=== PATIENT | male | born 1955 | race Caucasian/White ===

== ENCOUNTER 2017-06-06 18:55 | Inpatient (IN) | END 2017-06-12 12:34 | disposition home or self-care (01) | DRG 329 ==

== ENCOUNTER 2018-06-12 17:55 | Inpatient (IN) | payer OTHER ==
[~2018-06-12] VITALS: Ht 190.5 cm; Wt 122.7 kg
[~2018-06-12 17:55] MED LIST: BENA5TAB33 PO; CARV3.1260 PO; CIPR500T4 PO; ISOS30TA67 PO; METR500T PO; OXYC-438 PO; PANT40TA3 PO
[2018-06-12] MEDS ORDERED: NITROGLYCERIN 2% 1 GM OINT PKT TD STA (18:07)
--- NOTE | 2018-06-12 18:09 | ERD ---
ER Documentation Chief Complaint Chief Complaint PT TRANSFERED FROM [facility] DUE TO ELEVATED TROPONIN, SOB HPI This is a 63-year-old male who was transferred from [place] [facility] because of an elev ated troponin of 13.6. Patient states that he was having difficulty breathing for the past 2 days but does not really recall having chest pain. The patient could not be admitted at [facility] because they do not have the ability to do heart cath. The electronic maintenance supervisor on-call for that hospital is a same 1 on-call here and he is aware of this patient's status. Patient states he has not had chest pain today ROS All systems reviewed and are negative except as per history of present illness. Medications Home Meds Reported Medications Atorvastatin* (Atorvastatin*) 80 Mg Tablet, 80 MG PO QHS, #30 TAB 06/12/18 Carvedilol* (Carvedilol*) 25 Mg Tablet, 25 MG PO BID, #60 TAB 06/12/18 Isosorbide Mononitrate* (Isosorbide Mononitrate*) 60 Mg Tab.er.24h, 60 MG PO DAILY, TAB 06/12/18 Benazepril Hcl* (Benazepril Hcl*) 5 Mg Tablet, 5 MG PO DAILY, #30 TAB 06/12/18 Omeprazole* (Omeprazole*) 20 Mg Capsule.dr, 20 MG PO DAILY, #30 CAP 06/12/18 Cholecalciferol* (Vitamin D3*) 1,000 Unit Tablet, 1000 UNIT PO DAILY, TAB 06/12/18 Aspirin* (Aspirin* EC) 81 Mg Tablet.dr, 81 MG PO DAILY, TAB 06/12/18 Nitroglycerin* (Nitroglycerin* SL) 0.4 Mg Tab.subl, 0.4 MG SL Q5MIN PRN for CHEST PAIN, BOTTLE 06/12/18 Discontinued Scripts Oxycodone HCl/Acetaminophen (Oxycodone-Acetaminophen 5-325) 1 Each Tablet, 1 TAB PO Q6H PRN for PAIN LEVEL 4-6, #10 TAB Prov:NINO MILLER DIGITAL MEDIA DESIGNER 06/12/17 Metronidazole* (Flagyl*) 500 Mg Tablet, 500 MG PO Q8 for 10 Days, #30 TAB Prov:NINO MILLER DIGITAL MEDIA DESIGNER 06/12/17 Ciprofloxacin Hcl* (Ciprofloxacin Hcl*) 500 Mg Tablet, 500 MG PO BID for 10 Days, #20 TAB Prov:NINO MILLER DIGITAL MEDIA DESIGNER 06/12/17 Benazepril Hcl* (Benazepril Hcl*) 5 Mg Tablet, 5 MG PO DAILY, #30 TAB Prov:NINO MILLER DIGITAL MEDIA DESIGNER 06/12/17 Carvedilol* (Carvedilol*) 3.125 Mg Tablet, 3.125 MG PO BID, #60 TAB Prov:NINO MILLER DIGITAL MEDIA DESIGNER 06/12/17 Pantoprazole* (Protonix*) 40 Mg Tablet.dr, 40 MG PO BID, #60 TAB Prov:NINO MILLER DIGITAL MEDIA DESIGNER 06/12/17 Isosorbide Mononitrate* (Isosorbide Mononitrate*) 30 Mg Tab.er.24h, 30 MG PO DAILY, #30 TAB Prov:NINO MILLER DIGITAL MEDIA DESIGNER 06/12/17 Allergies Allergies: Coded Allergies: Penicillins (Unverified Allergy, Unknown, 06/12/18) PMhx/Soc History of Surgery: No Anesthesia Reaction: No Hx Neurological Disorder: No Hx Respiratory Disorders: Yes (ASTHMA ) Hx Cardiac Disorders: Yes (HX AL; HTN, STENT X1) Hx Psychiatric Problems: No Hx Miscellaneous Medical Probl: Yes (RENAL STENT, GERD) Hx Alcohol Use: Yes Hx Substance Use: No Hx Tobacco Use: No Smoking Status: Current some day smoker FmHx Family History: No coronary disease Physical Exam Vitals Vital Signs Date Temp Pulse Resp B/P (MAP) Pulse Ox O2 O2 Flow FiO2 Time Delivery Rate 06/12/18 Nasal 2 18:08 Cannula 06/12/18 98.2 70 20 122/78 98 18:05 (93) Physical Exam Const: Well-developed, well-nourished Head: Atraumatic, normocephalic Eyes: Normal Conjunctiva, PERRLA, EOMI, normal sclera, no nystagmus ENT: Normal External Ears, Nose and Mouth, moist mucus membranes. Neck: Full range of motion. No meningismus, no lymphadenopathy. Resp: Clear to auscultation bilaterally, no wheezing, rhonchi, rales Cardio: Regular rate and rhythm, no murmurs, S1 S2 present Abd: Soft, non tender x 4, non distended. Normal bowel sounds, no guarding or rebound, no pulsitile abdominal masses or bruits Skin: No petechiae or rashes, no ecchymosis , no maculopapular rash Back: No midline or flank tenderness Ext: No cyanosis, or edema, FROM x 4, normal inspection, neurovascularly intact x 4 Neur: Awake and alert, STR 5/5 x 4, sensation intact x 4, no focal findings, cerebellum intact Psych: Normal Mood and Affect Results 24 hrs Laboratory Tests Test 06/12/18 18:28 White Blood Count Pending Red Blood Count Pending Hemoglobin Pending Hematocrit Pending Mean Corpuscular Volume Pending Mean Corpuscular Hemoglobin Pending Mean Corpuscular Hemoglobin Concent Pending Red Cell Distribution Width Pending Platelet Count Pending Mean Platelet Volume Pending Current Medications Medications Dose Sig/Alessandra Start Time Status Last (Trade) Ordered Route PRN Stop Time Admin Dose Reason Admin 1 inch ONCE STAT 06/12/18 DC 06/12/18 Nitroglycerin TD 18:07 06/12/18 18:34 18:08 (Nitroglyceri n 2% Oint) Procedures/MDM Patient admitted to the hospital here for cardiac cath. Notified electronic maintenance supervisor monkey breeder. Will receive some Nitropaste and be admitted to telemetry EKG: Rate/Rhythm: Anterior lateral Q waves, normal sinus rhythm heart rate 70 QRS, ST, QT: NORMAL [place], QRS, QT] Impression: Abnormal EKG Departure Diagnosis: Primary Impression: Non-STEMI (non-ST elevated myocardial infarction) Condition: Stable DARRIAN GONSALES DO Jun 12, 2018 18:09
[2018-06-12] MEDS ORDERED: NITR0.4T32 SL (18:19)
[2018-06-12] MEDS ORDERED: OMEP20CA16 PO (18:20)
[2018-06-12] MEDS ORDERED: ASPI-817 PO (18:20)
[2018-06-12] MEDS ORDERED: CHOL100062 PO (18:20)
[2018-06-12] MEDS ORDERED: BENA5TAB33 PO (18:21)
[2018-06-12] MEDS ORDERED: ISOS60TA PO (18:21)
[2018-06-12] MEDS ORDERED: CARV25TA79 PO (18:22)
[2018-06-12] MEDS ORDERED: ATOR-2 PO (18:22)
[2018-06-12] MEDS: FUROSEMIDE 40 MG INJ IV SCH (19:00)
--- NOTE | 2018-06-12 19:08 | HP ---
Date/Time of Note Date/Time of Note DATE: 06/12/18 TIME: 19:00 Assessment/Plan VTE Prophylaxis Pharmacological prophylaxis: heparin Lines/Catheters IV Catheter Type (from [facility]): Saline Lock Assessment/Plan Hospital Course 63 yo male with h/o CAD presents with NSTEMI and acute CHF NSTEMI: - Heparin drip, aspirin - Dr Bacon to perform LHC tomorrow Acute CHF: - Start lasix Scabies: - Permethrin cream and ivermectin TERRENCE: - Trend creatinine, UA pending PUD: - Continue PPI Dc; apparently homeless. SW assistance Result Diagram: 06/12/18182706/12/188 Results 24hrs Laboratory Tests Test 06/12/18 18:28 White Blood Count 8.5 # Red Blood Count 3.40 L Hemoglobin 11.6 L Hematocrit 34.9 L Mean Corpuscular Volume 102.6 H Mean Corpuscular Hemoglobin 34.1 H Mean Corpuscular Hemoglobin Concent 33.2 Red Cell Distribution Width 13.3 Platelet Count 229 Mean Platelet Volume 9.4 Immature Granulocytes % 0.500 H Neutrophils % 60.8 Lymphocytes % 17.9 Monocytes % 10.2 Eosinophils % 10.1 H Basophils % 0.5 Nucleated Red Blood Cells % 0.0 Immature Granulocytes # 0.040 H Neutrophils # 5.2 Lymphocytes # 1.5 Monocytes # 0.9 Eosinophils # 0.9 H Basophils # 0.0 Nucleated Red Blood Cells # 0.0 Prothrombin Time 14.9 Prothrombin Time Ratio 1.2 INR International Normalized Ratio 1.16 Activated Partial Thromboplast Time Pending Sodium Level 141 Potassium Level 3.7 Chloride Level 104 Carbon Dioxide Level 27 Anion Gap 10 Blood Urea Nitrogen 15 Creatinine 1.38 H Est Glomerular Filtrat Rate mL/min 52 L Glucose Level 118 Calcium Level 8.5 Total Bilirubin 0.9 Direct Bilirubin 0.00 Indirect Bilirubin 0.9 Aspartate Amino Transf (AST/SGOT) 119 H Alanine Aminotransferase (ALT/SGPT) 53 Alkaline Phosphatase 65 Troponin I Pending B-Type Natriuretic Peptide Pending Total Protein 7.0 Albumin 3.7 Globulin 3.30 H Albumin/Globulin Ratio 1.12 HPI/ROS Admit Date/Time Admit Date/Time Hx of Present Illness 63 yo male with h/o CAD presents as transfer from [place] for managemnet of CHF and NV Had NV in 2007. Seems to have been well since then. Over past few days has developed worsenign SOB. Seems worse at night. Denies overt chest pain but does have some cough. At [facility] found to have troponin to 13 and transferred here Currently [facility] Other major complaint is of skin itching. Given permethrin a few weeks ago but sounds lke didn't use it. Legs and back covered in excoriations ROS Constitutional: no complaints, improved Eyes: no complaints ENT: no complaints Respiratory: no complaints Cardiovascular: no complaints Gastrointestinal: no complaints Genitourinary: no complaints Musculoskeletal: no complaints Skin: no complaints Neurologic: no complaints Endocrine: no complaints Lymphatic: no complaints Psychological: no complaints, nl mood/affect Immunologic: no complaints PMH/Family/Social Past Medical History Medical History: coronary artery disease Coded Allergies: Penicillins (Unverified Allergy, Unknown, 06/12/18) Past Surgical History Past Surgical Hx: no surgical history Family History Significant Family History: no pertinent family hx Social History Alcohol Use: none Smoking Status: Current some day smoker Drug Use: none Exam/Review of Systems Vital Signs Vitals Vital Signs Date Temp Pulse Resp B/P (MAP) Pulse Ox O2 O2 Flow FiO2 Time Delivery Rate 06/12/18 67 12 122/78 100 Nasal 2.0 18:43 (93) Cannula 06/12/18 98.2 18:05 Exam Exam Alert, oriented Comfortable appearing + JVD RRR CLear lungs Obese, soft, nt Legs covered in excoriations to thighs. Back as well No pitting edema YUSRA AYALA MD Jun 12, 2018 19:08
[2018-06-12] MEDS ORDERED: NACL 0.9% 3 ML SYG IV SCH (19:30)
[2018-06-12] MEDS ORDERED: HYDROmorphONE 0.5 MG/0.5 ML SYG IV PRN (19:30)
[2018-06-12] MEDS ORDERED: IVERMECTIN 3 MG TAB PO ONE (19:30)
[2018-06-12] MEDS ORDERED: PERMETHRIN 5% 60 GM CR TOP ONE (19:30)
[2018-06-12] MEDS: HEPARIN 1000 UNITS/ML 10 ML INJ IV PRN (19:49)
[2018-06-12] MEDS: HEPARIN 25000 UNITS/250 ML 250 ML IV SCH (19:50)
[2018-06-12] MEDS ORDERED: ACETAMINOPHEN 325 MG TAB PO PRN (20:00)
[2018-06-12] MEDS ORDERED: ONDANSETRON 4 MG INJ IV PRN (20:00)
[2018-06-12 20:15] VITALS: PULSE 66
[2018-06-12 21:00] VITALS: BP 102/56; PULSE 74; RESP 18; Ht 190.5 cm; Wt 122.7 kg
[2018-06-12] MEDS ORDERED: METOPROLOL 50 MG TAB PO SCH (21:00)
[2018-06-12] MEDS: ATORVASTATIN 80 MG TAB PO SCH (21:52)
[2018-06-13] VITALS (19 sets, daily range): BP systolic 85–116; BP diastolic 43–75; PULSE 65–86; RESP 15–26
[2018-06-13] MEDS ORDERED: SOD CHLORIDE 0.9% 1,000 ML IV SCH (00:30)
[2018-06-13] MEDS: HEPARIN 25000 UNITS/250 ML 250 ML IV SCH ×2 (03:30→12:47)
[2018-06-13] MEDS: PANTOPRAZOLE (EC) 40 MG TAB PO SCH (06:15)
[2018-06-13] MEDS: FUROSEMIDE 40 MG INJ IV SCH ×3 (06:15→22:29)
--- NOTE | 2018-06-13 07:21 | CONS ---
Assessment/Plan Cardiology NYHA: IV Heart Failure Type: Acute on Chronic Heart Failure Type: Systolic Assessment/Plan Hospital Course (Demo Recall) NSTEMI: Trop 15. Dyspnea may be his anginal equivalent. Acute on chronic systolic heart failure: EF unknown but presumed depressed. Decompensated on exam but dyspnea out of proportion to his CHF Ischemic cardiomoyopathy CAD s/p SC/PCI 2007 HTN CKD: Cr 1.4 Rash: rosalino treated for possible scabies -pt agreeable and consents to cardiac cath for evaluation -heparin drip -ASA, lipitor -change to coreg 6.25mg BID -lasix 40mg IV BID Consultation Date/Type/Reason Admit Date/Time Date of Consultation: Jun 13, 2018 Type of Consult Cardiology Reason for Consultation NSTEMI Requesting Provider: YUSRA AYALA MD Date/Time of Note DATE: 06/13/18 TIME: 07:15 Hx of Present Illness 63 yo homeless male with a h/o CAD s/p SC/PCI 2007, presumed cardiomyopathy, presumed chronic systolic heart failure, CKD, HTN, who presented with dyspnea and was found to have an NSTEMI with trop 15. He was initially at [facility] but then was transferred to [facility]. He gets his care at [facility] and he actually knows exactly what medications he takes. He lives in a residential at times around there. He seems to be compliant with his meds and sees a estate conservator regularly. He notes 3 days of worsening dyspnea and edema. No chest pain. per hPI Past Medical History per hPI Home Meds Reported Medications Atorvastatin* (Atorvastatin*) 80 Mg Tablet, 80 MG PO QHS, #30 TAB 06/12/18 Carvedilol* (Carvedilol*) 25 Mg Tablet, 25 MG PO BID, #60 TAB 06/12/18 Isosorbide Mononitrate* (Isosorbide Mononitrate*) 60 Mg Tab.er.24h, 60 MG PO DA BRITTANI, TAB 06/12/18 Benazepril Hcl* (Benazepril Hcl*) 5 Mg Tablet, 5 MG PO DAILY, #30 TAB 06/12/18 Omeprazole* (Omeprazole*) 20 Mg Capsule.dr, 20 MG PO DAILY, #30 CAP 06/12/18 Cholecalciferol* (Vitamin D3*) 1,000 Unit Tablet, 1000 UNIT PO DAILY, TAB 06/12/18 Aspirin* (Aspirin* EC) 81 Mg Tablet.dr, 81 MG PO DAILY, TAB 06/12/18 Nitroglycerin* (Nitroglycerin* SL) 0.4 Mg Tab.subl, 0.4 MG SL Q5MIN PRN for CHEST PAIN, BOTTLE 06/12/18 Discontinued Scripts Oxycodone HCl/Acetaminophen (Oxycodone-Acetaminophen 5-325) 1 Each Tablet, 1 TAB PO Q6H PRN for PAIN LEVEL 4-6, #10 TAB Prov:NINO MILLER NP 06/12/17 Metronidazole* (Flagyl*) 500 Mg Tablet, 500 MG PO Q8 for 10 Days, #30 TAB Prov:NINO MILLER NP 06/12/17 Ciprofloxacin Hcl* (Ciprofloxacin Hcl*) 500 Mg Tablet, 500 MG PO BID for 10 Days, #20 TAB Prov:NINO MILLER NP 06/12/17 Benazepril Hcl* (Benazepril Hcl*) 5 Mg Tablet, 5 MG PO DAILY, #30 TAB Prov:NINO MILLER NP 06/12/17 Carvedilol* (Carvedilol*) 3.125 Mg Tablet, 3.125 MG PO BID, #60 TAB Prov:NINO MILLER NP 06/12/17 Pantoprazole* (Protonix*) 40 Mg Tablet.dr, 40 MG PO BID, #60 TAB Prov:NINO MILLER NP 06/12/17 Isosorbide Mononitrate* (Isosorbide Mononitrate*) 30 Mg Tab.er.24h, 30 MG PO DAILY, #30 TAB Prov:NINO MILLER NP 06/12/17 Medications Current Medications Furosemide (Lasix) 40 mg BID DIURETICS IV Last administered on 06/13/18at 06:15; Admin Dose 40 MG; Start 06/12/18 at 19:00 Heparin Sodium (Porcine) (Heparin (1000 Units/ml)) 4,000 unit PER PROTOCOL PRN IV aPTT<47 Last administered on 06/12/18at 19:49; Admin Dose 4,000 UNIT; Start 06/12/18 at 19:30 Heparin Sodium (Porcine) 250 ml @ 10 mls/hr PER PROTOCOL IV Last administered on 06/13/18at 03:30; Admin Dose 12.5 MLS/HR; Start 06/12/18 at 19:30 Aspirin (Aspirin) 81 mg DAILY PO ; Start 06/13/18 at 09:00 IV Flush (NS 3 ml) 3 ml PER PROTOCOL IV ; Start 06/12/18 at 19:30 Hydromorphone HCl (Dilaudid) 0.5 mg Q4H PRN IV .SEVERE PAIN 7-10; Start 06/12/18 at 19:30 Pantoprazole (Protonix Tab) 40 mg DAILY@06 PO Last administered on 06/13/18at 06:15; Admin Dose 40 MG; Start 06/13/18 at 06:00 Metoprolol Tartrate (Lopressor) 50 mg BID PO Last administered on 06/12/18at 21:53; Admin Dose 50 MG; Start 06/12/18 at 21:00 Lisinopril (Zestril) 5 mg DAILY PO ; Start 06/13/18 at 09:00 Atorvastatin Calcium (Lipitor) 80 mg HS PO Last administered on 06/12/18at 21:52; Admin Dose 80 MG; Start 06/12/18 at 21:00 Ondansetron HCl (Zofran Inj) 4 mg ER BRIDGE PRN IV NAUSEA/VOMITING; Start 06/12/18 at 20:00; Stop 06/13/18 at 19:59 Acetaminophen (Tylenol Tab) 650 mg ER BRIDGE PRN PO .MILD PAIN 1-3 OR TEMP; Start 06/12/18 at 20:00; Stop 06/13/18 at 19:59 Miscellaneous Information Patients own medicat... BID@10,16 XX ; Start 06/13/18 at 10:00 Allergies: Coded Allergies: Penicillins (Unverified Allergy, Unknown, 06/12/18) Past Surgical History Past Surgical Hx: no surgical history Social History Alcohol Use: none Smoking Status: Current some day smoker Drug Use: none Exam/Review of Systems Vital Signs Vitals Vital Signs Date Temp Pulse Resp B/P (MAP) Pulse Ox O2 O2 Flow FiO2 Time Delivery Rate 06/13/18 98.0 76 18 104/57 98 04:00 (73) 06/13/18 Nasal 00:00 Cannula 06/12/18 2.0 21:00 Intake and Output 06/12/18 06/12/18 06/13/18 1515:00 23:00 07:00 IntakeIntake Total 1195 ml OutputOutput Total 1000 ml BalanceBalance 195 ml Exam Constitutional: alert, oriented Psych: no complaints, nl mood/affect Neck: jvd (9cm) Respiratory: crackles/rales (bases); No clear to auscultation, No wheezing Cardiovascular: regular rate and rhythm, edema (1+) Extremities: No normal pulses Neurological: nl mental status, nl speech Skin: rash or lesions Additional Comments EKG: sinus, anterolateral q waves Labs Result Diagram: 06/13/1845 06/13/18 0545 Results 24hrs Laboratory Tests Test 06/12/18 18:28 06/13/18 02:32 06/13/18 05:45 White Blood Count 8.5 # 8.4 Red Blood Count 3.40 L 3.60 L Hemoglobin 11.6 L 12.1 L Hematocrit 34.9 L 37.3 L Mean Corpuscular Volume 102.6 H 103.6 H Mean Corpuscular Hemoglobin 34.1 H 33.6 H Mean Corpuscular Hemoglobin Concent 33.2 32.4 Red Cell Distribution Width 13.3 13.2 Platelet Count 229 229 Mean Platelet Volume 9.4 9.6 Immature Granulocytes % 0.500 H 0.500 H Neutrophils % 60.8 56.8 Lymphocytes % 17.9 19.5 Monocytes % 10.2 10.6 Eosinophils % 10.1 H 12.0 H Basophils % 0.5 0.6 Nucleated Red Blood Cells % 0.0 0.0 Immature Granulocytes # 0.040 H 0.040 H Neutrophils # 5.2 4.8 Lymphocytes # 1.5 1.6 Monocytes # 0.9 0.9 Eosinophils # 0.9 H 1.0 H Basophils # 0.0 0.1 Nucleated Red Blood Cells # 0.0 0.0 Prothrombin Time 14.9 Prothrombin Time Ratio 1.2 INR International Normalized Ratio 1.16 Activated Partial Thromboplast Time 30.3 56.9 H Sodium Level 141 139 Potassium Level 3.7 4.4 Chloride Level 104 102 Carbon Dioxide Level 27 28 Anion Gap 10 9 Blood Urea Nitrogen 15 20 Creatinine 1.38 H 1.40 H Est Glomerular Filtrat Rate mL/min 52 L 51 L Glucose Level 118 123 Calcium Level 8.5 9.0 Total Bilirubin 0.9 0.7 Direct Bilirubin 0.00 0.00 Indirect Bilirubin 0.9 0.7 Aspartate Amino Transf (AST/SGOT) 119 H 115 H Alanine Aminotransferase (ALT/SGPT) 53 58 Alkaline Phosphatase 65 67 Troponin I 15.400 *H B-Type Natriuretic Peptide 4350 H Total Protein 7.0 7.1 Albumin 3.7 3.7 Globulin 3.30 H 3.40 H Albumin/Globulin Ratio 1.12 1.08 Hemoglobin A1c 6.0 H Medications Medications Current Medications Furosemide (Lasix) 40 mg BID DIURETICS IV Last administered on 06/13/18 06:15; Admin Dose 40 MG; Start 06/12/18 at 19:00 Heparin Sodium (Porcine) (Heparin (1000 Units/ml)) 4,000 unit PER PROTOCOL PRN IV aPTT<47 Last administered on 06/12/18 19:49; Admin Dose 4,000 UNIT; Start 06/12/18 at 19:30 Heparin Sodium (Porcine) 250 ml @ 10 mls/hr PER PROTOCOL IV Last administered on 06/13/18 03:30; Admin Dose 12.5 MLS/HR; Start 06/12/18 at 19:30 Aspirin (Aspirin) 81 mg DAILY PO ; Start 06/13/18 at 09:00 IV Flush (NS 3 ml) 3 ml PER PROTOCOL IV ; Start 06/12/18 at 19:30 Hydromorphone HCl (Dilaudid) 0.5 mg Q4H PRN IV .SEVERE PAIN 7-10; Start 06/12/18 at 19:30 Pantoprazole (Protonix Tab) 40 mg DAILY@06 PO Last administered on 06/13/18 06:15; Admin Dose 40 MG; Start 06/13/18 at 06:00 Metoprolol Tartrate (Lopressor) 50 mg BID PO Last administered on 06/12/18at 21:53; Admin Dose 50 MG; Start 06/12/18 at 21:00 Lisinopril (Zestril) 5 mg DAILY PO ; Start 06/13/18 at 09:00 Atorvastatin Calcium (Lipitor) 80 mg HS PO Last administered on 06/12/18at 21:52; Admin Dose 80 MG; Start 06/12/18 at 21:00 Ondansetron HCl (Zofran Inj) 4 mg ER BRIDGE PRN IV NAUSEA/VOMITING; Start 06/12/18 at 20:00; Stop 4/8/19 at 19:59 Acetaminophen (Tylenol Tab) 650 mg ER BRIDGE PRN PO .MILD PAIN 1-3 OR TEMP; Start 06/12/18 at 20:00; Stop 06/13/18 at 19:59 Miscellaneous Information Patients own medicat... BID@10,16 XX ; Start 06/13/18 at 10:00 JOJO NUNEZ Jun 13, 2018 07:21
[2018-06-13] MEDS ORDERED: FENTAnyl 50 MCG/ML VIAL ONE (07:38)
[2018-06-13] MEDS ORDERED: NITROGLYCERIN (IC) 100 MCG/ML INJ ONE (07:38)
[2018-06-13] MEDS ORDERED: IODIXANOL LOCM 100 ML BTL ONE ×2 (07:38→08:13)
[2018-06-13] MEDS ORDERED: HEPARIN 1000 UNITS/ML 10 ML INJ ONE (07:38)
[2018-06-13] MEDS ORDERED: MIDAZOLAM 1 MG/ML 2 ML INJ ONE (07:38)
[2018-06-13] MEDS ORDERED: VERAPAMIL 5 MG INJ ONE (07:38)
[2018-06-13] MEDS ORDERED: LIDOCAINE 1% (MDV) 20 ML INJ ONE (07:38)
[2018-06-13] MEDS ORDERED: SOD CHLORIDE 0.9% 500 ML ONE (07:39)
--- NOTE | 2018-06-13 08:49 | OPR ---
Date/Time of Note Date/Time of Note DATE: 06/13/18 TIME: 08:42 Operative Report Procedure Date: Jun 13, 2018 Preoperative Diagnosis NSTEMI Postoperative Diagnosis NSTEMI Operation/Procedure Performed see details Surgeon see signature line Canine Enforcement Officer none Anesthesia Type: moderate sedation Estimated Blood Loss: minimal Transfusion none Specimen none Grafts/Implants none Complications none Procedure Description Procedure Date:06/13/2018 Contract Post Office Clerk/surgeon:Esteban Bacon MD. Procedures Performed: 1)Left heart catheterization with selective left and right coronary angiography. Pre-operative Diagnosis:NSTEMI Post-operative Diagnosis:same Indications: 63 yo homeless male with a h/o CAD s/p [place]/PCI 2007, presumed cardiomyopathy, presumed chronic systolic heart failure, CKD, HTN, who presented with dyspnea and was found to have an NSTEMI with trop 15 Description of Procedure: After informed consent, the patient was brought to the cardiac catheterization lab. The procedure site was prepped and draped in usual manner. The patient was premedicated with versed 1 mg and fentanyl 25 mcg. 3 mL lidocaine was injected into the right wrist. Next using the posterior wall technique, the 6/5 ugandan sheath was inserted into the right radial artery. Next using the JL3.5 and JR4, selective angiography of the left and right coronary arteries were obtained. The pigtail was then advanced into the ventricle and hemodynamics obtained. Left ventricle angiography was not obtained. Next all equipment was removed and hemostasis was obtained by TR band. Findings: Anatomy/Hemodynamics: Left main:normal LAD:very tortuous take-off with ostial 30% followed by patent prox stent followed by hazy, eccentric 95% lesion which may be calcified plaque vs thrombus Diagonal:luminal irregularities Circumflex:codominant with luminal irregularities Obtuse marginal: prox 90% RCA:codominat with prox 50% and mid 100% with left-right collaterals LV angiography:not done LV-Ao: no gradient LVEDP:35 mmHg Contrast used:80 mL Estimated blood loss<10 mL. Specimen: none Grafts/implants: none Complications: none Assessment: NSTEMI: three vessel CAD including MANAGER CANCER. Likely underlying cardiomyopathy as well. CABG eval is appropriate Plan: -restart heparin drip after TR band removed -CABG eval -diuresis -medical management in the interim ESTEBAN BACON Jun 13, 2018 08:48
--- NOTE | 2018-06-13 09:32 | CONS ---
Assessment/Plan Assessment/Plan Assessment/Plan (Daily) Chest x-ray showing mild pulmonary vessel congestion. Assessment recommendations; 1. Patient admitted with acute [place] status post angiography revealing multivessel disease, patient scheduled for CABG. 2. History of hypertension. 3. Possibly mild chronic renal insufficiency. 4. Mild CHF. Continue current supportive care. Patient scheduled for CABG surgery. Will follow postop. Consultation Date/Type/Reason Admit Date/Time Date of Consultation: Jun 13, 2018 Type of Consult Pulmonary/critical care Patient is a 63-year-old male who was transferred from [facility] where he presented with shortness of breath, patient was diagnosed with acute [place] and then subsequently transferred over here where he underwent coronary angiography which revealed multivessel disease. Patient is scheduled for CABG surgery. By the time I saw him, patient is awake and alert denies any chest pain, shortness of breath, coughing, wheezing. Past medical history; 1. Patient has a history of hypertension Medications; reviewed. Allergies; penicillin. Social history; remote history of smoking. Family history; noncontributory. Occupational history; patient is homeless. Unemployed. Review of systems; denies any headache, seizures, sinus symptoms, dysphagia, chest pain, angina, wheezing, shortness of breath. Any coughing. Any abdominal pain, nausea vomiting. Any bleeding tendencies. Any edema. Orthopnea. Any GI or urinary symptoms. Complains of itching. General exam; elderly male, awake alert, currently no distress. Date/Time of Note DATE: 06/13/18 TIME: 09:29 Past Medical History Medical History: coronary artery disease Home Meds Reported Medications Atorvastatin* (Atorvastatin*) 80 Mg Tablet, 80 MG PO QHS, #30 TAB 06/12/18 Carvedilol* (Carvedilol*) 25 Mg Tablet, 25 MG PO BID, #60 TAB 06/12/18 Isosorbide Mononitrate* (Isosorbide Mononitrate*) 60 Mg Tab.er.24h, 60 MG PO DAILY, TAB 06/12/18 Benazepril Hcl* (Benazepril Hcl*) 5 Mg Tablet, 5 MG PO DAILY, #30 TAB 06/12/18 Omeprazole* (Omeprazole*) 20 Mg Capsule.dr, 20 MG PO DAILY, #30 CAP 06/12/18 Cholecalciferol* (Vitamin D3*) 1,000 Unit Tablet, 1000 UNIT PO DAILY, TAB 06/12/18 Aspirin* (Aspirin* EC) 81 Mg Tablet.dr, 81 MG PO DAILY, TAB 06/12/18 Nitroglycerin* (Nitroglycerin* SL) 0.4 Mg Tab.subl, 0.4 MG SL Q5MIN PRN for CHEST PAIN, BOTTLE 06/12/18 Discontinued Scripts Oxycodone HCl/Acetaminophen (Oxycodone-Acetaminophen 5-325) 1 Each Tablet, 1 TAB PO Q6H PRN for PAIN LEVEL 4-6, #10 TAB Prov:NINO MILLER NP 06/12/17 Metronidazole* (Flagyl*) 500 Mg Tablet, 500 MG PO Q8 for 10 Days, #30 TAB Prov:NINO MILLER NP 06/12/17 Ciprofloxacin Hcl* (Ciprofloxacin Hcl*) 500 Mg Tablet, 500 MG PO BID for 10 Days, #20 TAB Prov:NINO MILLER NP 06/12/17 Benazepril Hcl* (Benazepril Hcl*) 5 Mg Tablet, 5 MG PO DAILY, #30 TAB Prov:NINO MILLER NP 06/12/17 Carvedilol* (Carvedilol*) 3.125 Mg Tablet, 3.125 MG PO BID, #60 TAB Prov:NINO MILLER NP 06/12/17 Pantoprazole* (Protonix*) 40 Mg Tablet.dr, 40 MG PO BID, #60 TAB Prov:NINO MILLER NP 06/12/17 Isosorbide Mononitrate* (Isosorbide Mononitrate*) 30 Mg Tab.er.24h, 30 MG PO DAILY, #30 TAB Prov:NINO MILLER NP 06/12/17 Medications Current Medications Heparin Sodium (Porcine) (Heparin (1000 Units/ml)) 4,000 unit PER PROTOCOL PRN IV aPTT<47 Last administered on 06/12/18at 19:49; Admin Dose 4,000 UNIT; Start 06/12/18 at 19:30 Heparin Sodium (Porcine) 250 ml @ 10 mls/hr PER PROTOCOL IV Last administered on 06/13/18at 03:30; Admin Dose 12.5 MLS/HR; Start 06/12/18 at 19:30 Aspirin (Aspirin) 81 mg DAILY PO ; Start 06/13/18 at 09:00 IV Flush (NS 3 ml) 3 ml PER PROTOCOL IV ; Start 06/12/18 at 19:30 Hydromorphone HCl (Dilaudid) 0.5 mg Q4H PRN IV .SEVERE PAIN 7-10; Start 06/12/18 at 19:30 Pantoprazole (Protonix Tab) 40 mg DAILY@06 PO Last administered on 06/13/18at 06:15; Admin Dose 40 MG; Start 06/13/18 at 06:00 Lisinopril (Zestril) 5 mg DAILY PO ; Start 06/13/18 at 09:00 Atorvastatin Calcium (Lipitor) 80 mg HS PO Last administered on 06/12/18at 21:52; Admin Dose 80 MG; Start 06/12/18 at 21:00 Miscellaneous Information Patients own medicat... BID@10,16 XX ; Start 06/13/18 at 10:00 Carvedilol (Coreg) 6.25 mg BID PO ; Start 06/13/18 at 09:00 Furosemide (Lasix) 40 mg Q8H IV ; Start 06/13/18 at 14:00 Allergies: Coded Allergies: Penicillins (Unverified Allergy, Unknown, 06/12/18) Past Surgical History Past Surgical Hx: no surgical history Social History Alcohol Use: none Smoking Status: Current some day smoker Drug Use: none Exam/Review of Systems Exam Vitals Vital Signs Date Temp Pulse Resp B/P (MAP) Pulse Ox O2 O2 Flow FiO2 Time Delivery Rate 06/13/18 98.0 76 18 104/57 98 04:00 (73) 06/13/18 Nasal 00:00 Cannula 06/12/18 2.0 21:00 Intake and Output 06/12/18 06/12/18 06/13/18 1515:00 23:00 07:00 IntakeIntake Total 1195 ml OutputOutput Total 1000 ml BalanceBalance 195 ml Exam H EENT exam; supple neck, patient a few remaining carious teeth. No neck masses. No lymphadenopathy. Positive JVD. Chest exam; diminished but clear breath sounds. S1-S2 audible, no murmurs. Regular rhythm. Abdomen exam; soft, nontender. No organomegaly. Mildly protuberant. Bowel sounds audible. Extremity exam; hemoglobin. Skin examination; patient has multiple excoriation acosta all over. [employer] exam; no focal deficit. Results Result Diagram: 06/13/18 0545 06/13/18 0545 Results 24hrs Laboratory Tests Test 06/12/18 18:28 06/13/18 02:32 06/13/18 05:45 White Blood Count 8.5 # 8.4 Red Blood Count 3.40 L 3.60 L Hemoglobin 11.6 L 12.1 L Hematocrit 34.9 L 37.3 L Mean Corpuscular Volume 102.6 H 103.6 H Mean Corpuscular Hemoglobin 34.1 H 33.6 H Mean Corpuscular Hemoglobin Concent 33.2 32.4 Red Cell Distribution Width 13.3 13.2 Platelet Count 229 229 Mean Platelet Volume 9.4 9.6 Immature Granulocytes % 0.500 H 0.500 H Neutrophils % 60.8 56.8 Lymphocytes % 17.9 19.5 Monocytes % 10.2 10.6 Eosinophils % 10.1 H 12.0 H Basophils % 0.5 0.6 Nucleated Red Blood Cells % 0.0 0.0 Immature Granulocytes # 0.040 H 0.040 H Neutrophils # 5.2 4.8 Lymphocytes # 1.5 1.6 Monocytes # 0.9 0.9 Eosinophils # 0.9 H 1.0 H Basophils # 0.0 0.1 Nucleated Red Blood Cells # 0.0 0.0 Prothrombin Time 14.9 Prothrombin Time Ratio 1.2 INR International Normalized Ratio 1.16 Activated Partial Thromboplast Time 30.3 56.9 H Sodium Level 141 139 Potassium Level 3.7 4.4 Chloride Level 104 102 Carbon Dioxide Level 27 28 Anion Gap 10 9 Blood Urea Nitrogen 15 20 Creatinine 1.38 H 1.40 H Est Glomerular Filtrat Rate mL/min 52 L 51 L Glucose Level 118 123 Calcium Level 8.5 9.0 Total Bilirubin 0.9 0.7 Direct Bilirubin 0.00 0.00 Indirect Bilirubin 0.9 0.7 Aspartate Amino Transf (AST/SGOT) 119 H 115 H Alanine Aminotransferase (ALT/SGPT) 53 58 Alkaline Phosphatase 65 67 Troponin I 15.400 *H B-Type Natriuretic Peptide 4350 H Total Protein 7.0 7.1 Albumin 3.7 3.7 Globulin 3.30 H 3.40 H Albumin/Globulin Ratio 1.12 1.08 Hemoglobin A1c 6.0 H Medications Medication Current Medications Heparin Sodium (Porcine) (Heparin (1000 Units/ml)) 4,000 unit PER PROTOCOL PRN IV aPTT<47 Last administered on 06/12/18at 19:49; Admin Dose 4,000 UNIT; Start 06/12/18 at 19:30 Heparin Sodium (Porcine) 250 ml @ 10 mls/hr PER PROTOCOL IV Last administered on 06/13/18at 03:30; Admin Dose 12.5 MLS/HR; Start 06/12/18 at 19:30 Aspirin (Aspirin) 81 mg DAILY PO ; Start 06/13/18 at 09:00 IV Flush (NS 3 ml) 3 ml PER PROTOCOL IV ; Start 06/12/18 at 19:30 Hydromorphone HCl (Dilaudid) 0.5 mg Q4H PRN IV .SEVERE PAIN 7-10; Start 06/12/18 at 19:30 Pantoprazole (Protonix Tab) 40 mg DAILY@06 PO Last administered on 06/13/18at 06:15; Admin Dose 40 MG; Start 06/13/18 at 06:00 Lisinopril (Zestril) 5 mg DAILY PO ; Start 06/13/18 at 09:00 Atorvastatin Calcium (Lipitor) 80 mg HS PO Last administered on 06/12/18at 21:52; Admin Dose 80 MG; Start 06/12/18 at 21:00 Miscellaneous Information Patients own medicat... BID@10,16 XX ; Start 06/13/18 at 10:00 Carvedilol (Coreg) 6.25 mg BID PO ; Start 06/13/18 at 09:00 Furosemide (Lasix) 40 mg Q8H IV ; Start 06/13/18 at 14:00 YESSY THORNTON Jun 13, 2018 09:32
[2018-06-13] MEDS: ASPIRIN 81 MG TAB PO SCH (10:02)
[2018-06-13] MEDS: LISINOPRIL 5 MG TAB PO SCH (10:02)
[2018-06-13] MEDS: HEPARIN 1000 UNITS/ML 10 ML INJ IV PRN ×2 (12:42→20:31)
--- NOTE | 2018-06-13 17:44 | PN ---
Date/Time of Note Date/Time of Note DATE: 06/13/18 TIME: 17:43 Assessment/Plan VTE Prophylaxis Risk score (from Nsg)>0 risk: 2 Pharmacological prophylaxis: heparin Lines/Catheters IV Catheter Type (from Nrsg): Saline Lock Urinary Cath still in place: No Assessment/Plan Hospital Course 63 yo male with h/o CAD presents with NSTEMI and acute CHF NSTEMI: - Heparin drip, aspirin -Status post left heart cath with Dr Bacon with diffuse disease, CT surgery referral Acute CHF: - Start lasix Scabies: - Permethrin cream and ivermectin -ID consultation obtained TERRENCE: - Trend creatinine, UA pending PUD: - Continue PPI Prophylaxis: Heparin Result Diagram: 06/13/1845 06/13/1845 Results 24hrs Laboratory Tests Test 06/12/18 18:28 06/13/18 02:32 06/13/18 05:45 06/13/18 09:42 White Blood Count 8.5 # 8.4 Red Blood Count 3.40 L 3.60 L Hemoglobin 11.6 L 12.1 L Hematocrit 34.9 L 37.3 L Mean Corpuscular Volume 102.6 H 103.6 H Mean Corpuscular 34.1 H 33.6 H Hemoglobin Mean Corpuscular 33.2 32.4 Hemoglobin Concent Red Cell Distribution 13.3 13.2 Width Platelet Count 229 229 Mean Platelet Volume 9.4 9.6 Immature Granulocytes % 0.500 H 0.500 H Neutrophils % 60.8 56.8 Lymphocytes % 17.9 19.5 Monocytes % 10.2 10.6 Eosinophils % 10.1 H 12.0 H Basophils % 0.5 0.6 Nucleated Red Blood 0.0 0.0 Cells % Immature Granulocytes # 0.040 H 0.040 H Neutrophils # 5.2 4.8 Lymphocytes # 1.5 1.6 Monocytes # 0.9 0.9 Eosinophils # 0.9 H 1.0 H Basophils # 0.0 0.1 Nucleated Red Blood 0.0 0.0 Cells # Prothrombin Time 14.9 Prothrombin Time Ratio 1.2 INR International 1.16 Normalized Ratio Activated 30.3 56.9 H 35.9 H Partial Thromboplast Time Sodium Level 141 139 Potassium Level 3.7 4.4 Chloride Level 104 102 Carbon Dioxide Level 27 28 Anion Gap 10 9 Blood Urea Nitrogen 15 20 Creatinine 1.38 H 1.40 H Est Glomerular Filtrat 52 L 51 L Rate mL/min Glucose Level 118 123 Calcium Level 8.5 9.0 Total Bilirubin 0.9 0.7 Direct Bilirubin 0.00 0.00 Indirect Bilirubin 0.9 0.7 Aspartate Amino 119 H 115 H Transf (AST/SGOT) Alanine 53 58 Aminotransferase (ALT/SG PT) Alkaline Phosphatase 65 67 Troponin I 15.400 *H B-Type Natriuretic 4350 H Peptide Total Protein 7.0 7.1 Albumin 3.7 3.7 Globulin 3.30 H 3.40 H Albumin/Globulin Ratio 1.12 1.08 Hemoglobin A1c 6.0 H Subjective 24 Hr Interval Summary Constitutional: no complaints Exam/Review of Systems Exam Vitals Vital Signs Date Temp Pulse Resp B/P (MAP) Pulse Ox O2 O2 Flow FiO2 Time Delivery Rate 06/13/18 70 16:00 06/13/18 15 98/73 (81) 100 Nasal 15:00 Cannula 06/13/18 98.4 12:00 06/13/18 2.0 09:00 Intake and Output 06/12/18 06/12/18 06/13/18 1515:00 23:00 07:00 IntakeIntake Total 1195 ml OutputOutput Total 1000 ml BalanceBalance 195 ml Constitutional: alert, oriented Respiratory: clear to auscultation Cardiovascular: regular rate and rhythm Gastrointestinal: soft; No distended Musculoskeletal: nl extremities to inspection Results Results 24hrs Laboratory Tests Test 06/12/18 18:28 06/13/18 02:32 06/13/18 05:45 06/13/18 09:42 White Blood Count 8.5 # 8.4 Red Blood Count 3.40 L 3.60 L Hemoglobin 11.6 L 12.1 L Hematocrit 34.9 L 37.3 L Mean Corpuscular Volume 102.6 H 103.6 H Mean Corpuscular 34.1 H 33.6 H Hemoglobin Mean Corpuscular 33.2 32.4 Hemoglobin Concent Red Cell Distribution 13.3 13.2 Width Platelet Count 229 229 Mean Platelet Volume 9.4 9.6 Immature Granulocytes % 0.500 H 0.500 H Neutrophils % 60.8 56.8 Lymphocytes % 17.9 19.5 Monocytes % 10.2 10.6 Eosinophils % 10.1 H 12.0 H Basophils % 0.5 0.6 Nucleated Red Blood 0.0 0.0 Cells % Immature Granulocytes # 0.040 H 0.040 H Neutrophils # 5.2 4.8 Lymphocytes # 1.5 1.6 Monocytes # 0.9 0.9 Eosinophils # 0.9 H 1.0 H Basophils # 0.0 0.1 Nucleated Red Blood 0.0 0.0 Cells # Prothrombin Time 14.9 Prothrombin Time Ratio 1.2 INR International 1.16 Normalized Ratio Activated 30.3 56.9 H 35.9 H Partial Thromboplast Time Sodium Level 141 139 Potassium Level 3.7 4.4 Chloride Level 104 102 Carbon Dioxide Level 27 28 Anion Gap 10 9 Blood Urea Nitrogen 15 20 Creatinine 1.38 H 1.40 H Est Glomerular Filtrat 52 L 51 L Rate mL/min Glucose Level 118 123 Calcium Level 8.5 9.0 Total Bilirubin 0.9 0.7 Direct Bilirubin 0.00 0.00 Indirect Bilirubin 0.9 0.7 Aspartate Amino 119 H 115 H Transf (AST/SGOT) Alanine 53 58 Aminotransferase (ALT/SG PT) Alkaline Phosphatase 65 67 Troponin I 15.400 *H B-Type Natriuretic 4350 H Peptide Total Protein 7.0 7.1 Albumin 3.7 3.7 Globulin 3.30 H 3.40 H Albumin/Globulin Ratio 1.12 1.08 Hemoglobin A1c 6.0 H Medications Medication Current Medications Heparin Sodium (Porcine) (Heparin (1000 Units/ml)) 4,000 unit PER PROTOCOL PRN IV aPTT<47 Last administered on 06/13/18at 12:42; Admin Dose 4,000 UNIT; Start 06/12/18 at 19:30 Heparin Sodium (Porcine) 250 ml @ 10 mls/hr PER PROTOCOL IV Last administered on 06/13/18at 12:47; Admin Dose 12.5 MLS/HR; Start 06/12/18 at 19:30 Aspirin (Aspirin) 81 mg DAILY PO Last administered on 06/13/18at 10:02; Admin Dose 81 MG; Start 06/13/18 at 09:00 IV Flush (NS 3 ml) 3 ml PER PROTOCOL IV ; Start 06/12/18 at 19:30 Hydromorphone HCl (Dilaudid) 0.5 mg Q4H PRN IV .SEVERE PAIN 7-10; Start 06/12/18 at 19:30 Pantoprazole (Protonix Tab) 40 mg DAILY@06 PO Last administered on 06/13/18 06:15; Admin Dose 40 MG; Start 06/13/18 at 06:00 Lisinopril (Zestril) 5 mg DAILY PO Last administered on 06/13/18 10:02; Admin Dose 5 MG; Start 06/13/18 at 09:00 Atorvastatin Calcium (Lipitor) 80 mg HS PO Last administered on 06/12/18 21:52; Admin Dose 80 MG; Start 06/12/18 at 21:00 Miscellaneous Information Patients own medicat... BID@10,16 XX ; Start 06/13/18 at 10:00 Carvedilol (Coreg) 6.25 mg BID PO Last administered on 06/13/18 10:01; Admin Dose 6.25 MG; Start 06/13/18 at 09:00 Furosemide (Lasix) 40 mg Q8H IV Last administered on 06/13/18 14:21; Admin Dose 40 MG; Start 06/13/18 at 14:00 SALVADOR BERGMAN Jun 13, 2018 17:44
--- NOTE | 2018-06-13 17:51 | PN ---
Date/Time of Note Date/Time of Note DATE: 06/13/18 TIME: 17:50 Assessment/Plan Lines/Catheters IV Catheter Type (from [facility]): Saline Lock [place] in Place (from [facility]): No Assessment/Plan Assessment/Plan 63 YEAR old male who is homeless, had NSTEMI and cath shows 3V CAD and echo shows EF of 25-30%. He has lice and scabies. These need to be treated prior to any surgery. Need ID consult to clear. Exam/Review of Systems Vital Signs Vitals Vital Signs Date Temp Pulse Resp B/P (MAP) Pulse Ox O2 O2 Flow FiO2 Time Delivery Rate 06/13/18 70 16:00 06/13/18 15 98/73 (81) 100 Nasal 15:00 Cannula 06/13/18 98.4 12:00 06/13/18 2.0 09:00 Intake and Output 06/12/18 06/12/18 06/13/18 1515:00 23:00 07:00 IntakeIntake Total 1195 ml OutputOutput Total 1000 ml BalanceBalance 195 ml Results Result Diagram: 06/13/18 0545 06/13/18 0545 BRENNAN FERRELL MD Jun 13, 2018 17:51
[2018-06-13] MEDS ORDERED: PERMETHRIN 5% 60 GM CR TOP ONE (18:00)
--- NOTE | 2018-06-13 19:13 | CONS ---
DATE OF ADMISSION: 06/12/2018 DATE OF CONSULTATION: 06/13/2018 TYPE OF CONSULTATION: Infectious disease. REASON FOR CONSULTATION: Antibiotic management. HISTORY OF PRESENT ILLNESS: Gerald Singletary is a 63-year-old male who comes in with a history of cor onary artery disease and presents with non-STEMI and acute congestive heart failure. The patient was placed on heparin. Dr. Baocn was to perform LHC today. The patient has scabies and was treate d with permethrin cream and ivermectin. On admission, white count 8.5, H and H 11.6 and 34.9, platel et count 229,000. BUN and creatinine is 15/1.38, glucose of 118. The patient was transferred from [facility] with a troponin of 13.6 and difficulty breathing. Past problems also include asthma, hypertension, history of PA, stent x1, renal stent and GERD. PHYSICAL EXAMINATION: GENERAL: He is a well-developed, well-nourished male, alert, responsive, in no acute distress. VITAL SIGNS: Stable. He is afebrile. SKIN: Without generalized rash. HEENT: Within normal limits. NECK: Supple. LYMPH NODES: None palpable. CHEST: Decreased breath sounds at the bases without rhonchi. HEART: Without murmur or gallop. ABDOMEN: Soft, nontender without organosplenomegaly or masses. EXTREMITIES: Without cyanosis, clubbing or edema. RECTAL AND GENITAL: Deferred. NEUROLOGIC: No focal neurological abnormality. IMPRESSION AND PLAN: The patient was also seen by Dr. Flynn admitted with myocardial infarction. He was also seen by Dr. Bacon. Left heart catheterization was done. Postoperative diagnosis is n on-ST elevation myocardial infarction. The patient cardiomyopathy. The patient was noted to h ave lice in his hair. I probably would use permethrin for the lice in his hair as well. This should be effective in addition to combing his hair through carefully on a daily basis. I will dictate my findings to the hospitalist. Dictated By: VASU LAW MD, JD/NTS Conf#: [id number] DID#: [id number] CC: YUSRA AYALA MD;*EndCC*
[2018-06-13] MEDS: ATORVASTATIN 80 MG TAB PO SCH (20:07)
[2018-06-14] VITALS (24 sets, daily range): BP systolic 86–122; BP diastolic 45–95; PULSE 63–85; RESP 15–28
[2018-06-14] MEDS: HEPARIN 25000 UNITS/250 ML 250 ML IV SCH ×2 (04:20→21:30)
[2018-06-14] MEDS: FUROSEMIDE 40 MG INJ IV SCH ×2 (05:57→13:25)
[2018-06-14] MEDS: PANTOPRAZOLE (EC) 40 MG TAB PO SCH (06:09)
--- NOTE | 2018-06-14 07:01 | PN ---
Date/Time of Note Date/Time of Note DATE: 06/14/18 TIME: 06:59 Assessment/Plan Lines/Catheters IV Catheter Type (from [facility]): Peripheral IV De [place] in Place (from [facility]): No Assessment/Plan Assessment/Plan not an ideal candidate for surgery considering his homeless situation and infectious problems. he is high risk secondary to his severe cardiomyopathy, poor targets. await disposition Exam/Review of Systems Vital Signs Vitals Vital Signs Date Temp Pulse Resp B/P (MAP) Pulse Ox O2 O2 Flow FiO2 Time Delivery Rate 06/14/18 76 25 114/95 96 Nasal 06:00 (101) Cannula 06/14/18 98.0 04:00 06/13/18 2.0 20:00 Intake and Output 06/13/18 06/13/18 06/14/18 1515:00 23:00 07:00 IntakeIntake Total 678.0 ml 736.5 ml 234.0 ml OutputOutput Total 1100 ml 1650 ml 950 ml BalanceBalance -422.0 ml -913.5 ml -716.0 ml Results Result Diagram: 06/13/18 0545 06/13/18 0545 BRENNAN FERERLL MD Jun 14, 2018 07:01
--- NOTE | 2018-06-14 08:54 | RADRPT ---
Echocardiogram Report Patient Name: MEGAN CLARKPatient ID: [id number] : 1955 (63y 4m)Study Date: 06/13/2018 3:04:07 PM Gender: MAccession #: [id number] Tech: Avila Castro [facility] Location: 101-A Ref.Physician: YUSRA AYALA Height(Cm): BSA: Weight(Kg): Quality: AdequateAccount #: Procedures: Echocardiographic Report: Transthoracic echocardiogram with complete 2D, M-Mode, and doppler examination. Indications: Congestive Heart Failure. Measurements: 2D/M Mode Doppler Measurement Value Normal Range Measurement Value Normal Range LVIDd 2D 5.9 [ 4.2 - 5.8 ] cm AV Peak [place] 1.3 [ 100.0 - 170.0 ] cm/sec LVIDs 2D 5.1 [ 2.5 - 4.0 ] cm AV Peak PG 6.0 [ 2.0 - 9.0 ] mmHg LVPWd 2D 0.9 [ 0.6 - 1.0 ] cm LVOT Peak [place] 1.1 [ 70.0 - 110.0 ] cm/sec IVSd 2D 1.0 [ 0.6 - 1.0 ] cm LVOT Peak PG 5.0 [ 2.0 - 6.0 ] mmHg AoR Diam 2D 3.3 [ 2.6 - 3.4 ] cm MV E Peak [place] 1.1 [ 60.0 - 130.0 ] cm/sec EDV 2D 175.0 [ 62.0 - 150.0 ] ml MV A Peak [place] 0.3 [ 100.0 - 120.0 ] cm/sec ESV 2D 122.0 [ 21.0 - 61.0 ] ml MV E/A 3.3 [ 0.8 - 1.5 ] ratio EF 2D 30.3 [ 52.0 - 72.0 ] percent MV Decel Time 180 [ 104 - 258 ] msec LA Dimen 2D 4.3 [ 3.0 - 4.0 ] cm Lat E` [place] 0.1 [ 10.0 - 15.0 ] cm/sec Lateral E/E` 11.7 [ 1.0 - 2.0 ] ratio MV E/A 3.3 [ 0.8 - 1.5 ] ratio TR Peak [place] 1.9 [ 100.0 - 280.0 ] cm/sec TR Peak PG 14.0 mmHg RVSP 17.0 [ 10.0 - 36.0 ] mmHg Findings: Left Ventricle: Normal left ventricular wall thickness. Mild enlargement of left ventricle cavity. Severe left ventricular systolic dysfunction. Ejection fraction is visually estimated at 25-30 %. Tissue Doppler/Mitral Doppler indices are consistent with restrictive physiology with markedly elevated left atrial pressure (Stage III-IV diastolic dysfunction). Dyskinetic apex without obvious thrombus. Severe hypokinesis of the septum and anterior wall. Hypokinesis of the inferior wall. Right Ventricle: Normal right ventricular size. Normal right ventricular systolic function. Left Atrium: There is moderate enlargement of left atrium. Right Atrium: There is mild enlargement of right atrium. Mitral Valve: Normal appearance of the mitral valve. Mild mitral valve regurgitation. Aortic Valve: Normal appearance of the aortic valve. No significant aortic stenosis or insufficiency. Tricuspid Valve: Normal appearance of the tricuspid valve. Unable to obtain RVSP due to minimal presence of tricuspid regurgitation. There is trace tricuspid regurgitation. Pulmonic Valve: Normal pulmonic valve appearance. Pericardium: Normal pericardium with no significant pericardial effusion. Aorta: Normal aortic root. IVC: Dilated inferior vena cava with poor inspiratory collapse consistent with elevated right atrial pressures. Conclusions: Normal left ventricular wall thickness. Mild enlargement of left ventricle cavity. Severe left ventricular systolic dysfunction. Ejection fraction is visually estimated at 25-30 %. Tissue Doppler/Mitral Doppler indices are consistent with restrictive physiology with markedly elevated left atrial pressure (Stage III-IV diastolic dysfunction). Dyskinetic apex without obvious thrombus. Severe hypokinesis of the septum and anterior wall. Hypokinesis of the inferior wall. No significant valvular stenosis or regurgitation seen. Unable to obtain RVSP due to minimal presence of tricuspid regurgitation. Dilated inferior vena cava with poor inspiratory collapse consistent with elevated right atrial pressures. Electronically Signed By: Esteban Bacon 2018-06-14 08:54:04 PDT
[2018-06-14] MEDS: LISINOPRIL 5 MG TAB PO SCH (09:09)
[2018-06-14] MEDS: ASPIRIN 81 MG TAB PO SCH (09:09)
--- NOTE | 2018-06-14 09:09 | CONS ---
Assessment/Plan Assessment/Plan Assessment/Plan (Daily) Assessment recommendations; next 1. Patient admitted with acute OH status post angiographic multiple lesions, patient has been turned down by thoracic surgeon for CABG and has recommended repeat coronary angiography with possible stenting. 2. History of hypertension. 3. Mild CHF. 4. Scabies and lice infestation. 5. Worsening renal function, likely with a history of baseline renal insufficiency. Continue with supportive care. Monitor renal function. Because of worsening renal function repeat angiography would be risky however I will defer that to the fermentation operator. Consultation Date/Type/Reason Admit Date/Time Jun 12, 2018 at 19:40 Initial Consult Date 06/13/18 Type of Consult Pulmonary/critical care Patient is a 63-year-old male who was transferred from [facility] where he presented with shortness of breath, patient was diagnosed with acute OH and then subsequently transferred over here where he underwent coronary angiography which revealed multivessel disease. Patient is scheduled for CABG surgery. By the time I saw him, patient is awake and alert denies any chest pain, shortness of breath, coughing, wheezing. Past medical history; 1. Patient has a history of hypertension Medications; reviewed. Allergies; penicillin. Social history; remote history of smoking. Family history; noncontributory. Occupational history; patient is homeless. Unemployed. Review of systems; denies any headache, seizures, sinus symptoms, dysphagia, chest pain, angina, wheezing, shortness of breath. Any coughing. Any abdominal pain, nausea vomiting. Any bleeding tendencies. Any edema. Orthopnea. Any GI or urinary symptoms. Complains of itching. General exam; elderly male, awake alert, currently no distress. Requesting Provider: YUSRA AYALA MD Date/Time of Note DATE: 06/14/18 TIME: 09:07 24 HR Interval Summary Free Text/Dictation Patient's condition is stable. Has remained hemodynamically stable. Denies any shortness of breath, chest pain. General exam; elderly male, awake alert, currently no distress. Exam/Review of Systems Exam Vitals Vital Signs Date Temp Pulse Resp B/P (MAP) Pulse Ox O2 O2 Flow FiO2 Time Delivery Rate 06/14/18 69 08:00 06/14/18 25 114/95 96 Nasal 06:00 (101) Cannula 06/14/18 98.0 04:00 06/13/18 2.0 20:00 Intake and Output 06/13/18 06/13/18 06/14/18 1515:00 23:00 07:00 IntakeIntake Total 678.0 ml 736.5 ml 234.0 ml OutputOutput Total 1100 ml 1650 ml 950 ml BalanceBalance -422.0 ml -913.5 ml -716.0 ml Exam H EENT exam; supple neck, positive JVD. No lymphadenopathy. Midline trachea. No thyromegaly. Patient has a multiple carious teeth. No neck masses. Chest exam; diminished but clear breath sounds. S1-S2 audible, no murmurs. Regular rhythm. Abdomen exam; soft, protuberant. Nontender. No organomegaly. Bowel sounds audible. Extremity exam; no peripheral edema. Skin exam; multiple excoriation acosta all over. SHARE DAIRY FARMER exam; no focal deficit. Results Result Diagram: 06/14/18 0705 06/14/18 0705 Results 24hrs Laboratory Tests Test 06/13/18 09:42 06/13/18 19:09 06/14/18 01:11 06/14/18 07:05 Activated 35.9 H 32.8 98.6 *H 86.7 *H Partial Thromboplast Time White Blood Count 7.2 Red Blood Count 3.74 L Hemoglobin 12.5 L Hematocrit 38.2 L Mean Corpuscular Volume 102.1 H Mean Corpuscular 33.4 H Hemoglobin Mean Corpuscular 32.7 Hemoglobin Concent Red Cell Distribution 13.1 Width Platelet Count 241 Mean Platelet Volume 9.6 Immature Granulocytes % 0.400 Neutrophils % 53.5 Lymphocytes % 23.6 Monocytes % 9.4 Eosinophils % 12.3 H Basophils % 0.8 Nucleated Red Blood 0.0 Cells % Immature Granulocytes # 0.030 Neutrophils # 3.9 Lymphocytes # 1.7 Monocytes # 0.7 Eosinophils # 0.9 H Basophils # 0.1 Nucleated Red Blood 0.0 Cells # Sodium Level 139 Potassium Level 3.7 Chloride Level 99 Carbon Dioxide Level 30 Anion Gap 10 Blood Urea Nitrogen 24 H Creatinine 1.58 H Est Glomerular Filtrat 44 L Rate mL/min Glucose Level 119 Calcium Level 9.4 Medications Medication Current Medications Heparin Sodium (Porcine) (Heparin (1000 Units/ml)) 4,000 unit PER PROTOCOL PRN IV aPTT<47 Last administered on 06/13/18at 20:31; Admin Dose 4,000 UNIT; Start 06/12/18 at 19:30 Heparin Sodium (Porcine) 250 ml @ 10 mls/hr PER PROTOCOL IV Last administered on 06/14/18 04:20; Admin Dose 16 MLS/HR; Start 06/12/18 at 19:30 Aspirin (Aspirin) 81 mg DAILY PO Last administered on 06/13/18 10:02; Admin Dose 81 MG; Start 06/13/18 at 09:00 IV Flush (NS 3 ml) 3 ml PER PROTOCOL IV ; Start 06/12/18 at 19:30 Hydromorphone HCl (Dilaudid) 0.5 mg Q4H PRN IV .SEVERE PAIN 7-10; Start 06/12/18 at 19:30 Pantoprazole (Protonix Tab) 40 mg DAILY@06 PO Last administered on 06/14/18 06:09; Admin Dose 40 MG; Start 06/13/18 at 06:00 Lisinopril (Zestril) 5 mg DAILY PO Last administered on 06/13/18 10:02; Admin Dose 5 MG; Start 06/13/18 at 09:00 Atorvastatin Calcium (Lipitor) 80 mg HS PO Last administered on 06/13/18 20:07; Admin Dose 80 MG; Start 06/12/18 at 21:00 Miscellaneous Information Patients own medicat... BID@10,16 XX ; Start 06/13/18 at 10:00 Carvedilol (Coreg) 6.25 mg BID PO Last administered on 06/13/18 20:08; Admin Dose 6.25 MG; Start 06/13/18 at 09:00 Furosemide (Lasix) 40 mg Q8H IV Last administered on 06/13/18 22:29; Admin Dose 40 MG; Start 06/13/18 at 14:00 YESSY THORNTON Jun 14, 2018 09:09
--- NOTE | 2018-06-14 14:35 | CONS ---
Assessment/Plan Assessment/Plan Hospital Course (Demo Recall) Patient is alert looks comfortable denies pain no fevers overnight WBC 7.2 no shift no bands BUN 24 creatinine 1.58 Allergy penicillin Physical examination: Well-developed well-nourished elderly man who is in no distress head atraumatic normocephalic neck is supple chest rise symmetrical antonio ath sounds diminished bases heart S1-S2 abdomen soft bowel sounds present extremities without cyanosis skin patient has multiple scratching acosta mostly on lower extremities Assessment: 1. Head lice and scabies, status post Elimite treatment 2. Acute DC, status post Technology Advisor on admission 3. CHF 4. Homelessness Plan: Patient is stable, not a candidate for CABG per cardiothoracic surgery continue present care, follow cardiology recommendations. Repeat Elimite in a week Consultation Date/Type/Reason Admit Date/Time Jun 12, 2018 at 19:40 Initial Consult Date 06/13/18 Type of Consult id Requesting Provider: YUSRA AYALA MD Date/Time of Note DATE: 06/14/18 TIME: 14:35 Exam/Review of Systems Exam Vitals Vital Signs Date Temp Pulse Resp B/P (MAP) Pulse Ox O2 O2 Flow FiO2 Time Delivery Rate 06/14/18 79 17 122/90 97 Nasal 3.0 14:00 (101) Cannula 06/14/18 98.5 12:00 Intake and Output 06/13/18 06/13/18 06/14/18 1515:00 23:00 07:00 IntakeIntake Total 678.0 ml 736.5 ml 250.0 ml OutputOutput Total 1100 ml 1650 ml 950 ml BalanceBalance -422.0 ml -913.5 ml -700.0 ml Results Result Diagram: 06/14/18 0706/14/18 07 Results 24hrs Laboratory Tests Test 06/13/18 19:09 06/14/18 01:11 06/14/18 07:05 06/14/18 13:51 Activated 32.8 98.6 *H 86.7 *H 75.8 *H Partial Thromboplast Time White Blood Count 7.2 Red Blood Count 3.74 L Hemoglobin 12.5 L Hematocrit 38.2 L Mean Corpuscular Volume 102.1 H Mean Corpuscular 33.4 H Hemoglobin Mean Corpuscular 32.7 Hemoglobin Concent Red Cell Distribution 13.1 Width Platelet Count 241 Mean Platelet Volume 9.6 Immature Granulocytes % 0.400 Neutrophils % 53.5 Lymphocytes % 23.6 Monocytes % 9.4 Eosinophils % 12.3 H Basophils % 0.8 Nucleated Red Blood 0.0 Cells % Immature Granulocytes # 0.030 Neutrophils # 3.9 Lymphocytes # 1.7 Monocytes # 0.7 Eosinophils # 0.9 H Basophils # 0.1 Nucleated Red Blood 0.0 Cells # Sodium Level 139 Potassium Level 3.7 Chloride Level 99 Carbon Dioxide Level 30 Anion Gap 10 Blood Urea Nitrogen 24 H Creatinine 1.58 H Est Glomerular Filtrat 44 L Rate mL/min Glucose Level 119 Calcium Level 9.4 Medications Medication Current Medications Heparin Sodium (Porcine) (Heparin (1000 Units/ml)) 4,000 unit PER PROTOCOL PRN IV aPTT<47 Last administered on 06/13/18 20:31; Admin Dose 4,000 UNIT; Start 06/12/18 at 19:30 Heparin Sodium (Porcine) 250 ml @ 10 mls/hr PER PROTOCOL IV Last administered on 06/14/18 04:20; Admin Dose 16 MLS/HR; Start 06/12/18 at 19:30 Aspirin (Aspirin) 81 mg DAILY PO Last administered on 06/14/18 09:09; Admin Dose 81 MG; Start 06/13/18 at 09:00 IV Flush (NS 3 ml) 3 ml PER PROTOCOL IV ; Start 06/12/18 at 19:30 Hydromorphone HCl (Dilaudid) 0.5 mg Q4H PRN IV .SEVERE PAIN 7-10; Start 06/12/18 at 19:30 Pantoprazole (Protonix Tab) 40 mg DAILY@06 PO Last administered on 06/14/18 06:09; Admin Dose 40 MG; Start 06/13/18 at 06:00 Lisinopril (Zestril) 5 mg DAILY PO Last administered on 06/14/18 09:09; Admin Dose 5 MG; Start 06/13/18 at 09:00 Atorvastatin Calcium (Lipitor) 80 mg HS PO Last administered on 06/13/18 20:07; Admin Dose 80 MG; Start 06/12/18 at 21:00 Miscellaneous Information Patients own medicat... BID@10,16 XX ; Start 06/13/18 at 10:00 Carvedilol (Coreg) 6.25 mg BID PO Last administered on 06/14/18at 09:09; Admin Do se 6.25 MG; Start 06/13/18 at 09:00 Furosemide (Lasix) 40 mg Q8H IV Last administered on 06/14/18at 13:25; Admin Dose 40 MG; Start 06/13/18 at 14:00 KIKO NAYAK NP Jun 14, 2018 14:35
--- NOTE | 2018-06-14 14:46 | PN ---
Date/Time of Note Date/Time of Note DATE: 06/14/18 TIME: 14:44 Assessment/Plan VTE Prophylaxis Risk score (from Nsg)>0 risk: 5 Pharmacological prophylaxis: heparin Lines/Catheters IV Catheter Type (from Nrs): Peripheral IV Urinary Cath still in place: No Assessment/Plan Hospital Course 63 yo male with h/o CAD presents with NSTEMI and acute CHF NSTEMI: - Heparin drip, aspirin -Status post left heart cath with Dr Bacon with diffuse disease, CT surgery consultation appreciated, possible CABG in the next several days Acute CHF: -Continue Lasix Scabies: -Status post permethrin cream and ivermectin -ID consultation appreciated TERRENCE: - Trend creatinine, UA pending PUD: - Continue PPI Prophylaxis: Heparin Result Diagram: 06/14/1870406/14/18704 Results 24hrs Laboratory Tests Test 06/13/18 19:09 06/14/18 01:11 06/14/18 07:05 06/14/18 13:51 Activated 32.8 98.6 *H 86.7 *H 75.8 *H Partial Thromboplast Time White Blood Count 7.2 Red Blood Count 3.74 L Hemoglobin 12.5 L Hematocrit 38.2 L Mean Corpuscular Volume 102.1 H Mean Corpuscular 33.4 H Hemoglobin Mean Corpuscular 32.7 Hemoglobin Concent Red Cell Distribution 13.1 Width Platelet Count 241 Mean Platelet Volume 9.6 Immature Granulocytes % 0.400 Neutrophils % 53.5 Lymphocytes % 23.6 Monocytes % 9.4 Eosinophils % 12.3 H Basophils % 0.8 Nucleated Red Blood 0.0 Cells % Immature Granulocytes # 0.030 Neutrophils # 3.9 Lymphocytes # 1.7 Monocytes # 0.7 Eosinophils # 0.9 H Basophils # 0.1 Nucleated Red Blood 0.0 Cells # Sodium Level 139 Potassium Level 3.7 Chloride Level 99 Carbon Dioxide Level 30 Anion Gap 10 Blood Urea Nitrogen 24 H Creatinine 1.58 H Est Glomerular Filtrat 44 L Rate mL/min Glucose Level 119 Calcium Level 9.4 Subjective 24 Hr Interval Summary Constitutional: no complaints Exam/Review of Systems Exam Vitals Vital Signs Date Temp Pulse Resp B/P (MAP) Pulse Ox O2 O2 Flow FiO2 Time Delivery Rate 06/14/18 79 17 122/90 97 Nasal 3.0 14:00 (101) Cannula 06/14/18 98.5 12:00 Intake and Output 06/13/18 06/13/18 06/14/18 1515:00 23:00 07:00 IntakeIntake Total 678.0 ml 736.5 ml 250.0 ml OutputOutput Total 1100 ml 1650 ml 950 ml BalanceBalance -422.0 ml -913.5 ml -700.0 ml Constitutional: alert, oriented Respiratory: clear to auscultation Cardiovascular: regular rate and rhythm Gastrointestinal: soft; No distended Musculoskeletal: nl extremities to inspection Results Results 24hrs Laboratory Tests Test 06/13/18 19:09 06/14/18 01:11 06/14/18 07:05 06/14/18 13:51 Activated 32.8 98.6 *H 86.7 *H 75.8 *H Partial Thromboplast Time White Blood Count 7.2 Red Blood Count 3.74 L Hemoglobin 12.5 L Hematocrit 38.2 L Mean Corpuscular Volume 102.1 H Mean Corpuscular 33.4 H Hemoglobin Mean Corpuscular 32.7 Hemoglobin Concent Red Cell Distribution 13.1 Width Platelet Count 241 Mean Platelet Volume 9.6 Immature Granulocytes % 0.400 Neutrophils % 53.5 Lymphocytes % 23.6 Monocytes % 9.4 Eosinophils % 12.3 H Basophils % 0.8 Nucleated Red Blood 0.0 Cells % Immature Granulocytes # 0.030 Neutrophils # 3.9 Lymphocytes # 1.7 Monocytes # 0.7 Eosinophils # 0.9 H Basophils # 0.1 Nucleated Red Blood 0.0 Cells # Sodium Level 139 Potassium Level 3.7 Chloride Level 99 Carbon Dioxide Level 30 Anion Gap 10 Blood Urea Nitrogen 24 H Creatinine 1.58 H Est Glomerular Filtrat 44 L Rate mL/min Glucose Level 119 Calcium Level 9.4 Medications Medication Current Medications Heparin Sodium (Porcine) (Heparin (1000 Units/ml)) 4,000 unit PER PROTOCOL PRN IV aPTT<47 Last administered on 06/13/18at 20:31; Admin Dose 4,000 UNIT; Start 06/12/18 at 19:30 Heparin Sodium (Porcine) 250 ml @ 10 mls/hr PER PROTOCOL IV Last administered on 06/14/18at 04:20; Admin Dose 16 MLS/HR; Start 06/12/18 at 19:30 Aspirin (Aspirin) 81 mg DAILY PO Last administered on 06/14/18 09:09; Admin Dose 81 MG; Start 06/13/18 at 09:00 IV Flush (NS 3 ml) 3 ml PER PROTOCOL IV ; Start 06/12/18 at 19:30 Hydromorphone HCl (Dilaudid) 0.5 mg Q4H PRN IV .SEVERE PAIN 7-10; Start 06/12/18 at 19:30 Pantoprazole (Protonix Tab) 40 mg DAILY@06 PO Last administered on 06/14/18 06: 09; Admin Dose 40 MG; Start 06/13/18 at 06:00 Lisinopril (Zestril) 5 mg DAILY PO Last administered on 06/14/18 09:09; Admin Dose 5 MG; Start 06/13/18 at 09:00 Atorvastatin Calcium (Lipitor) 80 mg HS PO Last administered on 06/13/18 20:07; Admin Dose 80 MG; Start 06/12/18 at 21:00 Miscellaneous Information Patients own medicat... BID@10,16 XX ; Start 06/13/18 at 10:00 Carvedilol (Coreg) 6.25 mg BID PO Last administered on 06/14/18 09:09; Admin Dose 6.25 MG; Start 06/13/18 at 09:00 Furosemide (Lasix) 40 mg Q8H IV Last administered on 06/14/18 13:25; Admin Dose 40 MG; Start 06/13/18 at 14:00 SALVADOR BERGMAN Jun 14, 2018 14:46
--- NOTE | 2018-06-14 17:00 | CONS ---
Assessment/Plan Cardiology NYHA: IV Heart Failure Type: Acute on Chronic Heart Failure Type: Systolic Assessment/Plan Hospital Course (Demo Recall) NSTEMI: Trop 15. Cath 06/13/18 with 3 vessel disease. Seen by Dr. Aguilar and decided to be high risk for CABG. Pt agreeable to PCI. He understands the risks and benefits and has good follow up with [facility] cardiology and access to plavix. Acute on chronic systolic heart failure: EF 25-30%. LVEDP 35 on echo. Improved with diuresis. Ischemic cardiomoyopathy CAD s/p CT/PCI 2007 HTN CKD: Cr 1.4 Rash: rosalino treated for possible scabies and also lice -NPO after midnight for PCI in am -continue heparin drip. d/c at 5 am -ASA, lipitor -coreg 6.25mg BID -hold further lasix for now Consultation Date/Type/Reason Admit Date/Time Jun 12, 2018 at 19:40 Initial Consult Date 06/13/18 Type of Consult Cardiology Requesting Provider: YUSRA AYALA MD Date/Time of Note DATE: 06/14/18 TIME: 16:55 24 HR Interval Summary Free Text/Dictation No events. No SOB. No CP. Diuresing well. Seen by Dr. Aguilar and decided to be high risk for CABG. Pt agreeable to PCI. He understands the risks and benefits and has good follow up with [facility] cardiology and access to plavix. Exam/Review of Systems Vital Signs Vitals Vital Signs Date Temp Pulse Resp B/P (MAP) Pulse Ox O2 O2 Flow FiO2 Time Delivery Rate 06/14/18 98.0 85 26 106/67 95 Nasal 3.0 16:00 (80) Cannula Intake and Output 06/13/18 06/13/18 06/14/18 1515:00 23:00 07:00 IntakeIntake Total 678.0 ml 736.5 ml 250.0 ml OutputOutput Total 1100 ml 1650 ml 950 ml BalanceBalance -422.0 ml -913.5 ml -700.0 ml Exam Constitutional: alert, oriented Psych: no complaints, nl mood/affect Head: normocephalic, atraumatic Neck: jvd (8-9cm) Respiratory: crackles/rales (mild); No clear to auscultation Cardiovascular: regular rate and rhythm, edema (trace) Gastrointestinal: soft, non-tender; No distended Neurological: nl mental status, nl speech Labs Result Diagram: 06/14/1870406/14/18 07 Results 24hrs Laboratory Tests Test 06/13/18 19:09 06/14/18 01:11 06/14/18 07:05 06/14/18 13:51 Activated 32.8 98.6 *H 86.7 *H 75.8 *H Partial Thromboplast Time White Blood Count 7.2 Red Blood Count 3.74 L Hemoglobin 12.5 L Hematocrit 38.2 L Mean Corpuscular Volume 102.1 H Mean Corpuscular 33.4 H Hemoglobin Mean Corpuscular 32.7 Hemoglobin Concent Red Cell Distribution 13.1 Width Platelet Count 241 Mean Platelet Volume 9.6 Immature Granulocytes % 0.400 Neutrophils % 53.5 Lymphocytes % 23.6 Monocytes % 9.4 Eosinophils % 12.3 H Basophils % 0.8 Nucleated Red Blood 0.0 Cells % Immature Granulocytes # 0.030 Neutrophils # 3.9 Lymphocytes # 1.7 Monocytes # 0.7 Eosinophils # 0.9 H Basophils # 0.1 Nucleated Red Blood 0.0 Cells # Sodium Level 139 Potassium Level 3.7 Chloride Level 99 Carbon Dioxide Level 30 Anion Gap 10 Blood Urea Nitrogen 24 H Creatinine 1.58 H Est Glomerular Filtrat 44 L Rate mL/min Glucose Level 119 Calcium Level 9.4 Medications Medications Current Medications Heparin Sodium (Porcine) (Heparin (1000 Units/ml)) 4,000 unit PER PROTOCOL PRN IV aPTT<47 Last administered on 06/13/18at 20:31; Admin Dose 4,000 UNIT; Start 06/12/18 at 19:30 Heparin Sodium (Porcine) 250 ml @ 10 mls/hr PER PROTOCOL IV Last administered on 06/14/18at 04:20; Admin Dose 16 MLS/HR; Start 06/12/18 at 19:30 Aspirin (Aspirin) 81 mg DAILY PO Last administered on 06/14/18at 09:09; Admin Dose 81 MG; Start 06/13/18 at 09:00 IV Flush (NS 3 ml) 3 ml PER PROTOCOL IV ; Start 06/12/18 at 19:30 Hydromorphone HCl (Dilaudid) 0.5 mg Q4H PRN IV .SEVERE PAIN 7-10; Start 06/12/18 at 19:30 Pantoprazole (Protonix Tab) 40 mg DAILY@06 PO Last administered on 06/14/18at 06:09; Admin Dose 40 MG; Start 06/13/18 at 06:00 Lisinopril (Zestril) 5 mg DAILY PO Last administered on 06/14/18at 09:09; Admin Dose 5 MG; Start 06/13/18 at 09:00 Atorvastatin Calcium (Lipitor) 80 mg HS PO Last administered on 06/13/18at 20:07; Admin Dose 80 MG; Start 06/12/18 at 21:00 Miscellaneous Information Patients own medicat... BID@10,16 XX ; Start 06/13/18 at 10:00 Carvedilol (Coreg) 6.25 mg BID PO Last administered on 06/14/18at 09:09; Admin Dose 6.25 MG; Start 06/13/18 at 09:00 Furosemide (Lasix) 40 mg Q8H IV Last administered on 06/14/18at 13:25; Admin Dose 40 MG; Start 06/13/18 at 14:00 JOJO NUNEZ Jun 14, 2018 17:00
[2018-06-14] MEDS: ATORVASTATIN 80 MG TAB PO SCH (20:34)
[2018-06-15] VITALS (55 sets, daily range): BP systolic 83–127; BP diastolic 49–79; PULSE 62–111; RESP 12–31
[2018-06-15] MEDS: PANTOPRAZOLE (EC) 40 MG TAB PO SCH (05:47)
[2018-06-15] MEDS ORDERED: FENTAnyl 50 MCG/ML VIAL ONE (07:45)
[2018-06-15] MEDS ORDERED: MIDAZOLAM 1 MG/ML 2 ML INJ ONE (07:45)
[2018-06-15] MEDS ORDERED: LIDOCAINE 1% (MDV) 20 ML INJ ONE (07:45)
[2018-06-15] MEDS ORDERED: CLOPIDOGREL 300 MG TAB ONE (07:54)
[2018-06-15] MEDS ORDERED: ASPIRIN 325 MG TAB ONE (07:54)
[2018-06-15] MEDS ORDERED: BIVALIRUDIN 250MG /NS 50 ML 50 ML IVPB ONE ×2 (08:15→08:32)
[2018-06-15] MEDS ORDERED: NITROGLYCERIN (IC) 100 MCG/ML INJ ONE (08:16)
[2018-06-15] MEDS: ASPIRIN 81 MG TAB PO SCH (09:00)
[2018-06-15] MEDS: LISINOPRIL 5 MG TAB PO SCH (09:00)
[2018-06-15] MEDS ORDERED: IODIXANOL LOCM 100 ML BTL ONE (09:08)
[2018-06-15] MEDS ORDERED: FUROSEMIDE 40 MG INJ ONE (09:28)
[2018-06-15] MEDS ORDERED: EPTIFIBATIDE 30 ML ONE (09:30)
[2018-06-15] MEDS ORDERED: EPTIFIBATIDE 100 ML IV ONE (09:30)
[2018-06-15] MEDS ORDERED: HEPARIN 1000 UNITS/ML 10 ML INJ ONE (10:56)
[2018-06-15] MEDS ORDERED: morphine 2 MG INJ IV PRN (11:00)
--- NOTE | 2018-06-15 11:24 | OPR ---
Date/Time of Note Date/Time of Note DATE: 06/15/18 TIME: 10:56 Operative Report Procedure Date: Jun 15, 2018 Preoperative Diagnosis NSTEMI Postoperative Diagnosis NSTEMI Operation/Procedure Performed see details Surgeon see signature line Biodiesel Engine Specialist none Anesthesia Type: moderate sedation Estimated Blood Loss: minimal Transfusion none Specimen none Grafts/Implants none Complications none Procedure Description Procedure Date:06/15/2018 Semiconductor Engineer/surgeon: Esteban Bacon MD. Procedures Performed: 1)Complex Balloon angioplasty and stenting of the mid LAD with a Synergy 2.5 x 8 stent. 2)Complex Balloon angioplasty of the OM. Vessel was occluded prior to any wiring or manipulation. End result was an occluded vessel with post lesion dissection. No further intervention was completed. 3)Right femoral artery angiography 4)Intraaortic balloon pump placement Pre-operative Diagnosis:NSTEMI Post-operative Diagnosis:same s/p PCI as above Indications: 63 yo M with known CAD who presented with dyspnea, CHF. He was found to have an NSTEMI with trop 15. Cath 06/13 showed 3 vessel CAD. Echo showed EF of 25-30%. He was evaluated for CABG but thought to be high risk by the surgeon. After discussing with the pt, he was agreeable to PCI. Description of Procedure: After informed consent, the patient was brought to the cardiac catheterization lab. The procedure site was prepped and draped in usual manner. The patient was premedicated with versed 1 mg and fentanyl 25 mcg. 10 mL lidocaine was injected into the right groin. Next using the Seldinger technique and micropuncture ac cess, the 6 greenlandic sheath was inserted into the right femoral artery. Right femoral angiography was performed showing that the sheath was through the common femoral artery. The decision was made to proceed with PCI of the LAD first. A 6 greenlandic EBU 3.75 guide was advanced and engaged into the left coronary artery. Appropriate anticoagulation and antiplatelets were given. Due to a proximal LAD loop, wiring the vessel was initially difficult and required BMW wire with corsair support. The BMW would not cross the lesion in question though. Through the corsair, the BMW was exchanged for a PT moderate wire. Over this, the 2.0 x 8 balloon was used to dilate the lesion x 2 but the balloon burst. Next the NC 2.25 x 8 balloon was used to dilate the lesion. Subsequently, the Synergy 2.5 x 8 stent was advanced to the lesion and deployed at 11 justino. Next the stent was post dilated with the 2.5 X 6 noncompliant balloon times 2 at a maximum of 12atm. Final angiography revealed LORENA 3 flow, no edge dissection, and appropriate stent expansion. The decision was made to attempt PCI of the OM as well. The initial angiography before starting the LAD PCI showed a patent vessel with the known proximal lesion. Angiography prior to any wire entry to the Cx territory showed that the OM was occluded. The pt had started to complain of mild chest pain prior to the completion of the LAD PCI so this is likely when it occluded. The OM takeoff was 90 degress from the Cx which also had a bend at its origin. Due to this, it was very difficult to wire the OM. Multiple wires were attempted including BMW, PT 2 light support and wiggle wire. The PT was the only one that could access the vessel and with balloon support, the wire was advanced past the lesion. Due to lack of support, the wire could not be advanced distally but based on original diagnostic images, it appeared that the wire was at least past the initial lesion bend as was the balloon. The thought was to dilate the lesion to allow wire mobility and distal vessel visualization. This was attempted with a 2.0 x 8 balloon. Angiography revealed some flow now in the prox vessel but then a vessel dissection past the lesion. Attempts at finding the true lumen were not successful and the wire again would not cross. At this stage, the thought was that the pt was asymptomatic, no EKG changes were seen, electrically stable. Since the lesion was inherently difficult and further manipulation may complicate the dissection, it was decided to abort the case and place an IABP for support overnight. The right femoral sheath was exchanged for a long 8 greenlandic sheath and through this the IABP was advanced to the aortic knob. Findings: Anatomy/Hemodynamics: Left main:normal LAD:ostial 40%, tortuous loop proximally, patent stent after, mid calcified ec centric 90-99% Diagonal:luminal irregularities Circumflex:luminal irregularities Obtuse marginal 1: original image showed patent vessel with prox 90%. Subsequent image without any manipulation showed occlusion of the vessel LV angiography:not done LVEDP:30 mmHg before the case Contrast used: 320 mL Fluoroscopy time: 56.3 min Medications used: Versed 2 Fentanyl 25 Angiomax (ACT "out of range" Plavix 600mg ASA 325mg Integrilin drip Equipment used: 6 greenlandic EBU 3.75 guide BMW, PT 2 light support angioplasty wires Corsair 2 x 8 balloon Synergy 2.5 x 8 drug eluting stent 2.25 x 8, 2.5 x 6 noncompliant balloon Estimated blood loss<10 mL. Specimen: none Grafts/implants: none Complications: none Assessment: NSTEMI: 3 vessel CAD but not a surgical candidate. s/p successful PCI of LAD. Spontaneous occlusion of OM vessel during case nut unable to successfully revascularize Cardiogenic shock: s/p IABP Plan: -continue IABP overnight -integrilin x 8 hours -ASA 81mg indefinitely -plavix 75mg at least one year ESTEBAN BACON Jun 15, 2018 11:23
--- NOTE | 2018-06-15 11:53 | CONS ---
Assessment/Plan Cardiology NYHA: IV Heart Failure Type: Acute on Chronic Heart Failure Type: Systolic Assessment/Plan Hospital Course (Demo Recall) NSTEMI: Trop 15. Cath 06/13/18 with 3 vessel disease. Seen by Dr. Aguilar and decided to be high risk for CABG. Pt agreed to PCI.S/p cath 06/15 with successful PCI of LAD. Spontaneous occlusion of OM during case. Unable to revascularize due to vessel anatomy and tortuosity. Cardiogenic shock: IABP placed. On levophed for support Acute on chronic systolic heart failure: EF 25-30%. LVEDP 35 on original cath, then 30mmHg 06/15. Improved with diuresis. Ischemic cardiomoyopathy CAD s/p MT/PCI 2007 HTN CKD: Cr 1.4 Rash: rosalino treated for scabies and also lice -integrilin until 6 pm -wean leviophed to keep MAP >100 -ASA -plavix -lipitor -hold coreg 6.25mg BID until levophed weaned off -lasix 40mg IV BID Consultation Date/Type/Reason Admit Date/Time Jun 12, 2018 at 19:40 Initial Consult Date 06/13/18 Type of Consult Cardiology Requesting Provider: YUSRA AYALA MD Date/Time of Note DATE: 06/15/18 TIME: 11:49 24 HR Interval Summary Free Text/Dictation s/p cath today with PCI of LAD. Spontaneous occlusion of OM during case. Unable to revascularize due to vessel anatomy and tortuosity. No chest pain at end of case Exam/Review of Systems Vital Signs Vitals Vital Signs Date Temp Pulse Resp B/P (MAP) Pulse Ox O2 O2 Flow FiO2 Time Delivery Rate 06/15/18 69 08:00 06/15/18 14 100/73 89 Nasal 3.0 06:00 (82) Cannula 06/15/18 98.2 04:00 Intake and Output 06/14/18 06/14/18 06/15/18 1515:00 23:00 07:00 IntakeIntake Total 601.5 ml 742 ml 98 ml OutputOutput Total 300 ml 960 ml 460 ml BalanceBalance 301.5 ml -218 ml -362 ml Exam Constitutional: alert, oriented Psych: no complaints, nl mood/affect Head: normocephalic, atraumatic Neck: jvd (9cm) Respiratory: diminished breath sounds; No clear to auscultation Cardiovascular: regular rate and rhythm; No edema, No systolic murmur Gastrointestinal: soft, non-tender; No distended Musculoskeletal: nl extremities to inspection Neurological: nl mental status, nl speech Labs Result Diagram: 06/14/1870406/15/1824 Results 24hrs Laboratory Tests Test 06/14/18 13:51 06/14/18 20:37 06/15/18 02:42 06/15/18 04:58 Activated 75.8 *H 62.6 H 61.5 H Partial Thromboplast Time Sodium Level 137 Potassium Level 5.6 H Chloride Level 100 Carbon Dioxide Level 28 Anion Gap 9 Blood Urea Nitrogen 28 H Creatinine 1.49 H Est Glomerular 47 L Filtrat Rate mL/min Glucose Level 108 Calcium Level 9.2 Test 06/15/18 07:24 Potassium Level 4.7 Medications Medications Current Medications Aspirin (Aspirin) 81 mg DAILY PO Last administered on 06/14/18at 09:09; Admin Dose 81 MG; Start 06/13/18 at 09:00 IV Flush (NS 3 ml) 3 ml PER PROTOCOL IV ; Start 06/12/18 at 19:30 Hydromorphone HCl (Dilaudid) 0.5 mg Q4H PRN IV .SEVERE PAIN 7-10; Start 06/12/18 at 19:30 Pantoprazole (Protonix Tab) 40 mg DAILY@06 PO Last administered on 06/14/18at 06:09; Admin Dose 40 MG; Start 06/13/18 at 06:00 Lisinopril (Zestril) 5 mg DAILY PO Last administered on 06/14/18at 09:09; Admin Dose 5 MG; Start 06/13/18 at 09:00 Atorvastatin Calcium (Lipitor) 80 mg HS PO Last administered on 06/14/18at 20:34; Admin Dose 80 MG; Start 06/12/18 at 21:00 Miscellaneous Information Patients own medicat... BID@10,16 XX ; Start 06/13/18 at 10:00 Carvedilol (Coreg) 6.25 mg BID PO Last administered on 06/14/18at 09:09; Admin Dose 6.25 MG; Start 06/13/18 at 09:00 Morphine Sulfate (morphine) 2 mg Q2H PRN IV FOR NON CARDIAC PAIN (4-10); Start 06/15/18 at 11:00 Clopidogrel Bisulfate (plaVIX) 75 mg DAILY PO ; Start 06/16/18 at 09:00 Furosemide (Lasix) 40 mg BID DIURETICS IV ; Start 06/15/18 at 18:00 JOJO NUNEZ Jun 15, 2018 11:53
[2018-06-15] MEDS ORDERED: EPTIFIBATIDE 100 ML IV SCH (12:30)
[2018-06-15] MEDS: NORepinephrine 8MG/250 ML (PMX 250 ML IV SCH (12:33)
--- NOTE | 2018-06-15 12:57 | RADRPT ---
Vent Rate: 66 bpm RR Interval: 0 msec [place] Interval: 168 msec QRS Duration: 86 msec QT Interval: 378 msec QTC Interval: 396 msec P-R-T [place]: 56 - 0 - 75 degrees Normal sinus rhythm Inferior infarct , age undetermined Anterolateral infarct , age undetermined Abnormal ECG Electronically Signed By: Leandro Rasheed
--- NOTE | 2018-06-15 14:05 | CONS ---
Assessment/Plan Assessment/Plan Hospital Course (Demo Recall) Alert looks comfortable no fevers overnight. Chest x-ray revealed CHF. Patient is off antibiotics. Allergy: Penicillin Physical examination: Well-developed well-nourished elderly man who is in no distress head atraumatic normocephalic neck is supple chest rise symmetrical breath sounds diminished bases heart S1-S2 abdomen soft bowel sounds present extremities without cyanosis skin patient has multiple scratching acosta mostly on lower extremities Assessment: 1. Head lice and scabies, status post Elimite treatment 2. Acute [place], status post Clerk Rating on admission 3. CHF 4. Homelessness Plan: Patient is stable, continue present care, follow cardiology recommendations. Repeat Elimite in a week Consultation Date/Type/Reason Admit Date/Time Jun 12, 2018 at 19:40 Initial Consult Date 06/13/18 Type of Consult id Requesting Provider: YUSRA AYALA MD Date/Time of Note DATE: 06/15/18 TIME: 14:05 Exam/Review of Systems Exam Vitals Vital Signs Date Temp Pulse Resp B/P (MAP) Pulse Ox O2 O2 Flow FiO2 Time Delivery Rate 06/15/18 66 21 103/59 97 Nasal 2.0 13:00 (74) Cannula 06/15/18 97.6 11:45 Intake and Output 06/14/18 06/14/18 06/15/18 1515:00 23:00 07:00 IntakeIntake Total 601.5 ml 742 ml 98 ml OutputOutput Total 300 ml 960 ml 460 ml BalanceBalance 301.5 ml -218 ml -362 ml Results Result Diagram: 06/14/18 0705 06/15/18 0724 Results 24hrs Laboratory Tests Test 06/14/18 20:37 06/15/18 02:42 06/15/18 04:58 06/15/18 07:24 Activated 62.6 H 61.5 H Partial Thromboplast Time Sodium Level 137 Potassium Level 5.6 H 4.7 Chloride Level 100 Carbon Dioxide Level 28 Anion Gap 9 Blood Urea Nitrogen 28 H Creatinine 1.49 H Est Glomerular 47 L Filtrat Rate mL/min Glucose Level 108 Calcium Level 9.2 Medications Medication Current Medications Aspirin (Aspirin) 81 mg DAILY PO Last administered on 06/14/18at 09:09; Admin Dose 81 MG; Start 06/13/18 at 09:00 IV Flush (NS 3 ml) 3 ml PER PROTOCOL IV ; Start 06/12/18 at 19:30 Hydromorphone HCl (Dilaudid) 0.5 mg Q4H PRN IV .SEVERE PAIN 7-10; Start 06/12/18 at 19:30 Pantoprazole (Protonix Tab) 40 mg DAILY@06 PO Last administered on 06/14/18at 06:09; Admin Dose 40 MG; Start 06/13/18 at 06:00 Lisinopril (Zestril) 5 mg DAILY PO Last administered on 06/14/18at 09:09; Admin Dose 5 MG; Start 06/13/18 at 09:00 Atorvastatin Calcium (Lipitor) 80 mg HS PO Last administered on 06/14/18at 20:34; Admin Dose 80 MG; Start 06/12/18 at 21:00 Miscellaneous Information Patients own medicat... BID@10,16 XX ; Start 06/13/18 at 10:00 Carvedilol (Coreg) 6.25 mg BID PO Last administered on 06/14/18at 09:09; Admin Dose 6.25 MG; Start 06/13/18 at 09:00 Morphine Sulfate (morphine) 2 mg Q2H PRN IV FOR NON CARDIAC PAIN (4-10); Start 06/15/18 at 11:00 Clopidogrel Bisulfate (plaVIX) 75 mg DAILY PO ; Start 06/16/18 at 09:00 Furosemide (Lasix) 40 mg BID DIURETICS IV ; Start 06/15/18 at 18:00 Norepinephrine 250 ml @ 1.875 mls/ hr TITRATE IV Last administered on 06/15/18at 12:33; Admin Dose 9.375 MLS/HR; Start 06/15/18 at 12:30 Eptifibatide 100 ml @ 7.693 mls/ hr Q13H IV Last administered on 06/15/18at 12:36; Admin Dose 7.693 MLS/HR; Start 06/15/18 at 12:30; Stop 06/15/18 at 18:00 KIKO NAYAK NP Jun 15, 2018 14:05
--- NOTE | 2018-06-15 14:21 | PN ---
Date/Time of Note Date/Time of Note DATE: 06/15/18 TIME: 14:09 Assessment/Plan VTE Prophylaxis Risk score (from Nsg)>0 risk: 9 Pharmacological prophylaxis: heparin Lines/Catheters Urinary Cath still in place: No Assessment/Plan Hospital Course 63 yo male with h/o CAD presents with NSTEMI and acute CHF NSTEMI: -Patient did have a prior heart cath with multivessel disease but is not a candidate for CABG -Status post PCI today with stent placement in the LAD, balloon pump placed -Monitor in ICU Acute CHF: -Continue Lasix Scabies: -Status post permethrin cream and ivermectin -ID consultation appreciated TERRENCE: - Trend creatinine, UA pending PUD: - Continue PPI Prophylaxis: Heparin DC planning: Anticipate DC home in in 2-3 days Result Diagram: 06/14/1870406/15/1824 Results 24hrs Laboratory Tests Test 06/14/18 20:37 06/15/18 02:42 06/15/18 04:58 06/15/18 07:24 Activated 62.6 H 61.5 H Partial Thromboplast Time Sodium Level 137 Potassium Level 5.6 H 4.7 Chloride Level 100 Carbon Dioxide Level 28 Anion Gap 9 Blood Urea Nitrogen 28 H Creatinine 1.49 H Est Glomerular 47 L Filtrat Rate mL/min Glucose Level 108 Calcium Level 9.2 Subjective 24 Hr Interval Summary Constitutional: no complaints Exam/Review of Systems Exam Vitals Vital Signs Date Temp Pulse Resp B/P (MAP) Pulse Ox O2 O2 Flow FiO2 Time Delivery Rate 06/15/18 66 21 103/59 97 Nasal 2.0 13:00 (74) Cannula 06/15/18 97.6 11:45 Intake and Output 06/14/18 06/14/18 06/15/18 1515:00 23:00 07:00 IntakeIntake Total 601.5 ml 742 ml 98 ml OutputOutput Total 300 ml 960 ml 460 ml BalanceBalance 301.5 ml -218 ml -362 ml Constitutional: alert, oriented Respiratory: clear to auscultation Cardiovascular: regular rate and rhythm Gastrointestinal: soft; No distended Musculoskeletal: nl extremities to inspection Results Results 24hrs Laboratory Tests Test 06/14/18 20:37 06/15/18 02:42 06/15/18 04:58 06/15/18 07:24 Activated 62.6 H 61.5 H Partial Thromboplast Time Sodium Level 137 Potassium Level 5.6 H 4.7 Chloride Level 100 Carbon Dioxide Level 28 Anion Gap 9 Blood Urea Nitrogen 28 H Creatinine 1.49 H Est Glomerular 47 L Filtrat Rate mL/min Glucose Level 108 Calcium Level 9.2 Medications Medication Current Medications Aspirin (Aspirin) 81 mg DAILY PO Last administered on 06/14/18at 09:09; Admin Dose 81 MG; Start 06/13/18 at 09:00 IV Flush (NS 3 ml) 3 ml PER PROTOCOL IV ; Start 06/12/18 at 19:30 Hydromorphone HCl (Dilaudid) 0.5 mg Q4H PRN IV .SEVERE PAIN 7-10; Start 06/12/18 at 19:30 Pantoprazole (Protonix Tab) 40 mg DAILY@06 PO Last administered on 06/14/18at 06:09; Admin Dose 40 MG; Start 06/13/18 at 06:00 Lisinopril (Zestril) 5 mg DAILY PO Last administered on 06/14/18at 09:09; Admin Dose 5 MG; Start 06/13/18 at 09:00 Atorvastatin Calcium (Lipitor) 80 mg HS PO Last administered on 06/14/18at 20:34; Admin Dose 80 MG; Start 06/12/18 at 21:00 Miscellaneous Information Patients own medicat... BID@10,16 XX ; Start 06/13/18 at 10:00 Carvedilol (Coreg) 6.25 mg BID PO Last administered on 06/14/18at 09:09; Admin Dose 6.25 MG; Start 06/13/18 at 09:00 Morphine Sulfate (morphine) 2 mg Q2H PRN IV FOR NON CARDIAC PAIN (4-10); Start 06/15/18 at 11:00 Clopidogrel Bisulfate (plaVIX) 75 mg DAILY PO ; Start 06/16/18 at 09:00 Furosemide (Lasix) 40 mg BID DIURETICS IV ; Start 06/15/18 at 18:00 Norepinephrine 250 ml @ 1.875 mls/ hr TITRATE IV Last administered on 06/15/18at 12:33; Admin Dose 9.375 MLS/HR; Start 06/15/18 at 12:30 Eptifibatide 100 ml @ 7.693 mls/ hr Q13H IV Last administered on 06/15/18at 12:36; Admin Dose 7.693 MLS/HR; Start 06/15/18 at 12:30; Stop 06/15/18 at 18:00 SALVADOR BERGMAN Jun 15, 2018 14:19
[2018-06-15] MEDS: FUROSEMIDE 40 MG INJ IV SCH (17:36)
[2018-06-15] MEDS: ATORVASTATIN 80 MG TAB PO SCH (20:02)
[2018-06-16] VITALS (73 sets, daily range): BP systolic 48–134; BP diastolic 39–105; PULSE 72–93; RESP 9–25
[2018-06-16] MEDS ORDERED: DIPHENHYDRAMINE 50 MG INJ IM PRN (00:30)
[2018-06-16] MEDS ORDERED: ZOLPIDEM 5 MG TAB PO PRN (00:30)
[2018-06-16] MEDS ORDERED: DIPHENHYDRAMINE 50 MG INJ ONE (00:37)
[2018-06-16] MEDS: FUROSEMIDE 40 MG INJ IV SCH (05:27)
[2018-06-16] MEDS: PANTOPRAZOLE (EC) 40 MG TAB PO SCH (05:27)
[2018-06-16] MEDS ORDERED: DIPHENHYDRAMINE 50 MG INJ IV PRN (06:30)
[2018-06-16] MEDS: NORepinephrine 8MG/250 ML (PMX 250 ML IV SCH (07:50)
--- NOTE | 2018-06-16 08:27 | CONS ---
Assessment/Plan Assessment/Plan Assessment/Plan (Daily) Patient is currently on Levophed 4 mics per minute. Intra-aortic balloon pump is in place. Assessment recommendations; 1 patient admitted with acute WA status post initial angiographic patient subs equently was referred for CABG which was declined by the thoracic surgeon because of high risk, patient underwent repeat coronary angiography yesterday with stenting of LAD, obtuse marginal was occluded and could not be ballooned. 2. CHF, patient maintained on Levophed as well as intra-aortic balloon pump. 3. Acute renal injury with improving renal function. 4. History of hypertension. 5. Extensive infestation with lice and scabies. Continue current supportive care. Obtain follow-up chest x-ray 24 hours. Consultation Date/Type/Reason Admit Date/Time Jun 12, 2018 at 19:40 Initial Consult Date 06/13/18 Type of Consult Pulmonary/critical care Patient is a 63-year-old male who was transferred from [facility] where he presented with shortness of breath, patient was diagnosed with acute WA and then subsequently transferred over here where he underwent coronary angiography which revealed multivessel disease. Patient is scheduled for CABG surgery. By the time I saw him, patient is awake and alert denies any chest pain, shortness of breath, coughing, wheezing. Past medical history; 1. Patient has a history of hypertension Medications; reviewed. Allergies; penicillin. Social history; remote history of smoking. Family history; noncontributory. Occupational history; patient is homeless. Unemployed. Review of systems; denies any headache, seizures, sinus symptoms, dysphagia, chest pain, angina, wheezing, shortness of breath. Any coughing. Any abdominal pain, nausea vomiting. Any bleeding tendencies. Any edema. Orthopnea. Any GI or urinary symptoms. Complains of itching. General exam; elderly male, awake alert, currently no distress. Requesting Provider: YUSRA AYALA MD Date/Time of Note DATE: 06/16/18 TIME: 08:25 24 HR Interval Summary Free Text/Dictation Patient's condition is critical. Requiring pressor support as well as intra- aortic balloon pump. Denies any shortness of breath, chest pain. General exam; elderly male, awake alert, currently in no distress. Exam/Review of Systems Exam Vitals Vital Signs Date Temp Pulse Resp B/P (MAP) Pulse Ox O2 O2 Flow FiO2 Time Delivery Rate 06/16/18 Nasal 2.0 08:00 Cannula 06/16/18 80 20 115/66 95 08:00 (82) 06/16/18 27 03:47 06/16/18 98.2 03:45 Intake and Output 06/15/18 06/15/18 06/16/18 1515:00 23:00 07:00 IntakeIntake Total 1029.125 ml 758.125 ml 376.875 ml OutputOutput Total 1300 ml 1470 ml 1500 ml BalanceBalance -270.875 ml -711.875 ml -1123.125 ml Exam H EENT exam; supple neck, positive JVD. No lymphadenopathy. Midline trachea. No thyromegaly. No neck masses. Chest exam; diminished breath sounds bilaterally. S1-S2 audible, no murmurs. Regular rhythm. Abdomen exam; soft, protuberant. Nontender. Bowel sounds audible. Extremity exam; trace edema with multiple excoriation acosta. Pulses 1+. BUSINESS ADMINISTRATION PROGRAM CHAIR exam; no focal deficit. Results Result Diagram: 06/16/18 0434 06/16/18 0434 Results 24hrs Laboratory Tests Test 06/16/18 04:34 White Blood Count 8.3 Red Blood Count 3.85 L Hemoglobin 12.9 L Hematocrit 39.3 L Mean Corpuscular Volume 102.1 H Mean Corpuscular Hemoglobin 33.5 H Mean Corpuscular Hemoglobin Concent 32.8 Red Cell Distribution Width 13.0 Platelet Count 280 Mean Platelet Volume 9.5 Immature Granulocytes % 0.400 Neutrophils % 67.1 Lymphocytes % 14.4 L Monocytes % 11.2 H Eosinophils % 6.2 Basophils % 0.7 Nucleated Red Blood Cells % 0.0 Immature Granulocytes # 0.030 Neutrophils # 5.6 Lymphocytes # 1.2 Monocytes # 0.9 Eosinophils # 0.5 Basophils # 0.1 Nucleated Red Blood Cells # 0.0 Sodium Level 137 Potassium Level 3.7 Chloride Level 97 Carbon Dioxide Level 27 Anion Gap 13 Blood Urea Nitrogen 24 H Creatinine 1.47 H Est Glomerular Filtrat Rate mL/min 48 L Glucose Level 179 Calcium Level 9.6 Magnesium Level 2.1 Medications Medication Current Medications Aspirin (Aspirin) 81 mg DAILY PO Last administered on 06/14/18at 09:09; Admin Dose 81 MG; Start 06/13/18 at 09:00 IV Flush (NS 3 ml) 3 ml PER PROTOCOL IV ; Start 06/12/18 at 19:30 Hydromorphone HCl (Dilaudid) 0.5 mg Q4H PRN IV .SEVERE PAIN 7-10; Start 06/12/18 at 19:30 Pantoprazole (Protonix Tab) 40 mg DAILY@06 PO Last administered on 06/16/18 05:27; Admin Dose 40 MG; Start 06/13/18 at 06:00 Lisinopril (Zestril) 5 mg DAILY PO Last administered on 06/14/18 09:09; Admin Dose 5 MG; Start 06/13/18 at 09:00 Atorvastatin Calcium (Lipitor) 80 mg HS PO Last administered on 06/15/18at 20:02; Admin Dose 80 MG; Start 06/12/18 at 21:00 Miscellaneous Information Patients own medicat... BID@10,16 XX ; Start 06/13/18 at 10:00 Carvedilol (Coreg) 6.25 mg BID PO Last administered on 06/14/18at 09:09; Admin Dose 6.25 MG; Start 06/13/18 at 09:00 Morphine Sulfate (morphine) 2 mg Q2H PRN IV FOR NON CARDIAC PAIN (4-10) Last administered on 06/15/18at 21:20; Admin Dose 2 MG; Start 06/15/18 at 11:00 Clopidogrel Bisulfate (plaVIX) 75 mg DAILY PO ; Start 06/16/18 at 09:00 Furosemide (Lasix) 40 mg BID DIURETICS IV Last administered on 06/16/18 05:27; Admin Dose 40 MG; Start 06/15/18 at 18:00 Norepinephrine 250 ml @ 1.875 mls/ hr TITRATE IV Last administered on 06/16/18at 07:50; Admin Dose 7.5 MLS/HR; Start 06/15/18 at 12:30 Zolpidem Tartrate (Ambien) 5 mg HS PRN PO INSOMNIA; Start 06/16/18 at 00:30 Diphenhydramine HCl (Benadryl) 25 mg Q6H PRN IV FOR ITCHINESS; Start 06/16/18 at 06:30 YESSY THORNTON Jun 16, 2018 08:27
[2018-06-16] MEDS: ASPIRIN 81 MG TAB PO SCH (08:28)
[2018-06-16] MEDS: CLOPIDOGREL 75 MG TAB PO SCH (08:28)
[2018-06-16] MEDS: LISINOPRIL 5 MG TAB PO SCH ×2 (09:00→09:58)
--- NOTE | 2018-06-16 09:01 | CONS ---
Assessment/Plan Cardiology NYHA: IV Heart Failure Type: Acute on Chronic Heart Failure Type: Systolic Assessment/Plan Hospital Course (Demo Recall) NSTEMI: Trop 15. Cath 06/13/18 with 3 vessel disease. Seen by Dr. Aguilar and decided to be high risk for CABG. Pt agreed to PCI.S/p cath 06/15 with successful PCI of LAD. Spontaneous occlusion of OM during case. Unable to revascularize due to vessel anatomy and tortuosity. Doing well. Cardiogenic shock: IABP placed in labor relations representative and removed 06/16. On levophed but should be able to wean today Acute on chronic systolic heart failure: EF 25-30%. LVEDP 35 on original cath, then 30mmHg 06/15. Improved with diuresis. Ischemic cardiomoyopathy CAD s/p [place]/PCI 2007 HTN CKD: Cr 1.4 Rash: rosalino treated for scabies and also lice -wean levophed to SBP >90. Should be able to come off very soon -ASA -plavix -lipitor -restart coreg 6.25mg BID tonight if levophed is discontinued -change to lasix 40mg PO BID Consultation Date/Type/Reason Admit Date/Time Jun 12, 2018 at 19:40 Initial Consult Date 06/13/18 Type of Consult Cardiology Requesting Provider: YUSRA AYALA MD Date/Time of Note DATE: 06/16/18 TIME: 08:59 24 HR Interval Summary Free Text/Dictation No o/n events. No chest pain or SOB. No complaints Exam/Review of Systems Vital Signs Vitals Vital Signs Date Temp Pulse Resp B/P (MAP) Pulse Ox O2 O2 Flow FiO2 Time Delivery Rate 06/16/18 Nasal 2.0 08:00 Cannula 06/16/18 80 20 115/66 95 08:00 (82) 06/16/18 27 03:47 06/16/18 98.2 03:45 Intake and Output 06/15/18 06/15/18 06/16/18 1515:00 23:00 07:00 IntakeIntake Total 1029.125 ml 758.125 ml 376.875 ml OutputOutput Total 1300 ml 1470 ml 1500 ml BalanceBalance -270.875 ml -711.875 ml -1123.125 ml Exam Constitutional: alert, oriented Psych: no complaints, nl mood/affect Head: normocephalic, atraumatic Neck: No jvd Respiratory: diminished breath sounds; No clear to auscultation Cardiovascular: regular rate and rhythm; No edema Gastrointestinal: soft, non-tender; No distended Neurological: nl mental status, nl speech Labs Result Diagram: 06/16/184 06/16/18 0434 Results 24hrs Laboratory Tests Test 06/16/18 04:34 White Blood Count 8.3 Red Blood Count 3.85 L Hemoglobin 12.9 L Hematocrit 39.3 L Mean Corpuscular Volume 102.1 H Mean Corpuscular Hemoglobin 33.5 H Mean Corpuscular Hemoglobin Concent 32.8 Red Cell Distribution Width 13.0 Platelet Count 280 Mean Platelet Volume 9.5 Immature Granulocytes % 0.400 Neutrophils % 67.1 Lymphocytes % 14.4 L Monocytes % 11.2 H Eosinophils % 6.2 Basophils % 0.7 Nucleated Red Blood Cells % 0.0 Immature Granulocytes # 0.030 Neutrophils # 5.6 Lymphocytes # 1.2 Monocytes # 0.9 Eosinophils # 0.5 Basophils # 0.1 Nucleated Red Blood Cells # 0.0 Sodium Level 137 Potassium Level 3.7 Chloride Level 97 Carbon Dioxide Level 27 Anion Gap 13 Blood Urea Nitrogen 24 H Creatinine 1.47 H Est Glomerular Filtrat Rate mL/min 48 L Glucose Level 179 Calcium Level 9.6 Magnesium Level 2.1 Medications Medications Current Medications Aspirin (Aspirin) 81 mg DAILY PO Last administered on 06/16/18at 08:28; Admin Dose 81 MG; Start 06/13/18 at 09:00 IV Flush (NS 3 ml) 3 ml PER PROTOCOL IV ; Start 06/12/18 at 19:30 Hydromorphone HCl (Dilaudid) 0.5 mg Q4H PRN IV .SEVERE PAIN 7-10; Start 06/12/18 at 19:30 Pantoprazole (Protonix Tab) 40 mg DAILY@06 PO Last administered on 06/16/18at 05:27; Admin Dose 40 MG; Start 06/13/18 at 06:00 Lisinopril (Zestril) 5 mg DAILY PO Last administered on 06/14/18at 09:09; Admin Dose 5 MG; Start 06/13/18 at 09:00 Atorvastatin Calcium (Lipitor) 80 mg HS PO Last administered on 06/15/18at 20:02; Admin Dose 80 MG; Start 06/12/18 at 21:00 Miscellaneous Information Patients own medicat... BID@10,16 XX ; Start 06/13/18 at 10:00 Carvedilol (Coreg) 6.25 mg BID PO Last administered on 06/14/18 09:09; Admin Dose 6.25 MG; Start 06/13/18 at 09:00 Morphine Sulfate (morphine) 2 mg Q2H PRN IV FOR NON CARDIAC PAIN (4-10) Last administered on 06/15/18at 21:20; Admin Dose 2 MG; Start 06/15/18 at 11:00 Clopidogrel Bisulfate (plaVIX) 75 mg DAILY PO Last administered on 06/16/18at 08:28; Admin Dose 75 MG; Start 06/16/18 at 09:00 Furosemide (Lasix) 40 mg BID DIURETICS IV Last administered on 06/16/18at 05:27; Admin Dose 40 MG; Start 06/15/18 at 18:00 Norepinephrine 250 ml @ 1.875 mls/ hr TITRATE IV Last administered on 06/16/18at 07:50; Admin Dose 7.5 MLS/HR; Start 06/15/18 at 12:30 Zolpidem Tartrate (Ambien) 5 mg HS PRN PO INSOMNIA; Start 06/16/18 at 00:30 Diphenhydramine HCl (Benadryl) 25 mg Q6H PRN IV FOR ITCHINESS; Start 06/16/18 at 06:30 JOJO NUNEZ Jun 16, 2018 09:01
[2018-06-16] MEDS ORDERED: NORepinephrine 8MG/250 ML (PMX 250 ML IV SCH (09:30)
--- NOTE | 2018-06-16 12:11 | CONS ---
Assessment/Plan Assessment/Plan Hospital Course (Demo Recall) Alert feels good Allergy: Penicillin Physical examination: Well-developed well-nourished elderly man who is in no distress head atraumatic normocephalic neck is supple chest rise symmetrical b reath sounds diminished bases heart S1-S2 abdomen soft bowel sounds present extremities without cyanosis skin patient has multiple scratching acosta mostly on lower extremities Assessment: 1. Head lice and scabies, status post Elimite treatment 2. Acute NC, status post [employer] on admission 3. CHF 4. Homelessness Plan: Stable, itching is better, continue present care, follow cardiology recom mendations. Repeat Elimite in a week Consultation Date/Type/Reason Admit Date/Time Jun 12, 2018 at 19:40 Initial Consult Date 06/13/18 Type of Consult id Requesting Provider: YUSRA AYALA MD Date/Time of Note DATE: 06/16/18 TIME: 12:10 Exam/Review of Systems Exam Vitals Vital Signs Date Temp Pulse Resp B/P (MAP) Pulse Ox O2 O2 Flow FiO2 Time Delivery Rate 06/16/18 86 20 115/76 98 10:15 (89) 06/16/18 Nasal 2.0 10:00 Cannula 06/16/18 27 03:47 06/16/18 98.2 03:45 Intake and Output 06/15/18 06/15/18 06/16/18 1515:00 23:00 07:00 IntakeIntake Total 1029.125 ml 758.125 ml 376.875 ml OutputOutput Total 1300 ml 1470 ml 1500 ml BalanceBalance -270.875 ml -711.875 ml -1123.125 ml Results Result Diagram: 06/16/18 0434 06/16/18 0434 Results 24hrs Laboratory Tests Test 06/16/18 04:34 White Blood Count 8.3 Red Blood Count 3.85 L Hemoglobin 12.9 L Hematocrit 39.3 L Mean Corpuscular Volume 102.1 H Mean Corpuscular Hemoglobin 33.5 H Mean Corpuscular Hemoglobin Concent 32.8 Red Cell Distribution Width 13.0 Platelet Count 280 Mean Platelet Volume 9.5 Immature Granulocytes % 0.400 Neutrophils % 67.1 Lymphocytes % 14.4 L Monocytes % 11.2 H Eosinophils % 6.2 Basophils % 0.7 Nucleated Red Blood Cells % 0.0 Immature Granulocytes # 0.030 Neutrophils # 5.6 Lymphocytes # 1.2 Monocytes # 0.9 Eosinophils # 0.5 Basophils # 0.1 Nucleated Red Blood Cells # 0.0 Sodium Level 137 Potassium Level 3.7 Chloride Level 97 Carbon Dioxide Level 27 Anion Gap 13 Blood Urea Nitrogen 24 H Creatinine 1.47 H Est Glomerular Filtrat Rate mL/min 48 L Glucose Level 179 Calcium Level 9.6 Magnesium Level 2.1 Medications Medication Current Medications Aspirin (Aspirin) 81 mg DAILY PO Last administered on 06/16/18 08:28; Admin Do se 81 MG; Start 06/13/18 at 09:00 IV Flush (NS 3 ml) 3 ml PER PROTOCOL IV ; Start 06/12/18 at 19:30 Hydromorphone HCl (Dilaudid) 0.5 mg Q4H PRN IV .SEVERE PAIN 7-10; Start 06/12/18 at 19:30 Pantoprazole (Protonix Tab) 40 mg DAILY@06 PO Last administered on 06/16/18at 05:27; Admin Dose 40 MG; Start 06/13/18 at 06:00 Lisinopril (Zestril) 5 mg DAILY PO Last administered on 06/16/18 09:58; Admin Dose 5 MG; Start 06/13/18 at 09:00 Atorvastatin Calcium (Lipitor) 80 mg HS PO Last administered on 06/15/18at 20:02; Admin Dose 80 MG; Start 06/12/18 at 21:00 Miscellaneous Information Patients own medicat... BID@10,16 XX ; Start 06/13/18 at 10:00 Carvedilol (Coreg) 6.25 mg BID PO Last administered on 06/16/18at 09:56; Admin Dose 6.25 MG; Start 06/13/18 at 09:00 Morphine Sulfate (morphine) 2 mg Q2H PRN IV FOR NON CARDIAC PAIN (4-10) Last administered on 06/15/18 21:20; Admin Dose 2 MG; Start 06/15/18 at 11:00 Clopidogrel Bisulfate (plaVIX) 75 mg DAILY PO Last administered on 06/16/18 08:28; Admin Dose 75 MG; Start 06/16/18 at 09:00 Zolpidem Tartrate (Ambien) 5 mg HS PRN PO INSOMNIA; Start 06/16/18 at 00:30 Diphenhydramine HCl (Benadryl) 25 mg Q6H PRN IV FOR ITCHINESS; Start 06/16/18 at 06:30 Furosemide (Lasix) 40 mg BID DIURETICS PO ; Start 06/16/18 at 18:00 Norepinephrine 250 ml @ 1.875 mls/ hr TITRATE IV ; Start 06/16/18 at 09:30 KIKO NAYAK NP Jun 16, 2018 12:11
--- NOTE | 2018-06-16 14:47 | PN ---
Date/Time of Note Date/Time of Note DATE: 06/16/18 TIME: 14:44 Assessment/Plan VTE Prophylaxis Risk score (from Nsg)>0 risk: 13 Pharmacological prophylaxis: heparin Lines/Catheters Urinary Cath still in place: No Assessment/Plan Hospital Course 63 yo male with h/o CAD presents with NSTEMI and acute CHF NSTEMI: -Patient did have a prior heart cath with multivessel disease but is not a candidate for CABG -Status post PCI with stent placement in the LAD, status post balloon pump and pressors for cardiogenic shock -Monitor in ICU Cardiogenic shock after heart cath-resolved -Status post balloon pump and pressors Acute CHF: -Continue Lasix Scabies: Resolved -Status post permethrin cream and ivermectin -ID consultation appreciated TERRENCE versus CKD -Nephrology consultation obtained PUD: - Continue PPI Prophylaxis: Heparin DC planning: Anticipate DC home in 1-2 days Result Diagram: 06/16/18 0434 06/16/18 0434 Results 24hrs Laboratory Tests Test 06/16/18 04:34 White Blood Count 8.3 Red Blood Count 3.85 L Hemoglobin 12.9 L Hematocrit 39.3 L Mean Corpuscular Volume 102.1 H Mean Corpuscular Hemoglobin 33.5 H Mean Corpuscular Hemoglobin Concent 32.8 Red Cell Distribution Width 13.0 Platelet Count 280 Mean Platelet Volume 9.5 Immature Granulocytes % 0.400 Neutrophils % 67.1 Lymphocytes % 14.4 L Monocytes % 11.2 H Eosinophils % 6.2 Basophils % 0.7 Nucleated Red Blood Cells % 0.0 Immature Granulocytes # 0.030 Neutrophils # 5.6 Lymphocytes # 1.2 Monocytes # 0.9 Eosinophils # 0.5 Basophils # 0.1 Nucleated Red Blood Cells # 0.0 Sodium Level 137 Potassium Level 3.7 Chloride Level 97 Carbon Dioxide Level 27 Anion Gap 13 Blood Urea Nitrogen 24 H Creatinine 1.47 H Est Glomerular Filtrat Rate mL/min 48 L Glucose Level 179 Calcium Level 9.6 Magnesium Level 2.1 Subjective 24 Hr Interval Summary Constitutional: no complaints Exam/Review of Systems Exam Vitals Vital Signs Date Temp Pulse Resp B/P (MAP) Pulse Ox O2 O2 Flow FiO2 Time Delivery Rate 06/16/18 77 113/78 91 Room Air 14:00 (90) Nasal Cannula 06/16/18 15 12:30 06/16/18 98.0 12:00 06/16/18 2.0 11:00 06/16/18 27 03:47 Intake and Output 06/15/18 06/15/18 06/16/18 1515:00 23:00 07:00 IntakeIntake Total 1029.125 ml 758.125 ml 376.875 ml OutputOutput Total 1300 ml 1470 ml 1500 ml BalanceBalance -270.875 ml -711.875 ml -1123.125 ml Constitutional: alert, oriented Respiratory: clear to auscultation Cardiovascular: regular rate and rhythm Gastrointestinal: soft; No distended Musculoskeletal: nl extremities to inspection Results Results 24hrs Laboratory Tests Test 06/16/18 04:34 White Blood Count 8.3 Red Blood Count 3.85 L Hemoglobin 12.9 L Hematocrit 39.3 L Mean Corpuscular Volume 102.1 H Mean Corpuscular Hemoglobin 33.5 H Mean Corpuscular Hemoglobin Concent 32.8 Red Cell Distribution Width 13.0 Platelet Count 280 Mean Platelet Volume 9.5 Immature Granulocytes % 0.400 Neutrophils % 67.1 Lymphocytes % 14.4 L Monocytes % 11.2 H Eosinophils % 6.2 Basophils % 0.7 Nucleated Red Blood Cells % 0.0 Immature Granulocytes # 0.030 Neutrophils # 5.6 Lymphocytes # 1.2 Monocytes # 0.9 Eosinophils # 0.5 Basophils # 0.1 Nucleated Red Blood Cells # 0.0 Sodium Level 137 Potassium Level 3.7 Chloride Level 97 Carbon Dioxide Level 27 Anion Gap 13 Blood Urea Nitrogen 24 H Creatinine 1.47 H Est Glomerular Filtrat Rate mL/min 48 L Glucose Level 179 Calcium Level 9.6 Magnesium Level 2.1 Medications Medication Current Medications Aspirin (Aspirin) 81 mg DAILY PO Last administered on 06/16/18at 08:28; Admin Dose 81 MG; Start 06/13/18 at 09:00 IV Flush (NS 3 ml) 3 ml PER PROTOCOL IV ; Start 06/12/18 at 19:30 Hydromorphone HCl (Dilaudid) 0.5 mg Q4H PRN IV .SEVERE PAIN 7-10; Start 06/12/18 at 19:30 Pantoprazole (Protonix Tab) 40 mg DAILY@06 PO Last administered on 06/16/18at 05:27; Admin Dose 40 MG; Start 06/13/18 at 06:00 Lisinopril (Zestril) 5 mg DAILY PO Last administered on 06/16/18at 09:58; Admin Dose 5 MG; Start 06/13/18 at 09:00 Atorvastatin Calcium (Lipitor) 80 mg HS PO Last administered on 06/15/18at 20:02; Admin Dose 80 MG; Start 06/12/18 at 21:00 Miscellaneous Information Patients own medicat... BID@10,16 XX ; Start 06/13/18 at 10:00 Carvedilol (Coreg) 6.25 mg BID PO Last administered on 06/16/18at 09:56; Admin Dose 6.25 MG; Start 06/13/18 at 09:00 Morphine Sulfate (morphine) 2 mg Q2H PRN IV FOR NON CARDIAC PAIN (4-10) Last administered on 06/15/18at 21:20; Admin Dose 2 MG; Start 06/15/18 at 11:00 Clopidogrel Bisulfate (plaVIX) 75 mg DAILY PO Last administered on 06/16/18at 08:28; Admin Dose 75 MG; Start 06/16/18 at 09:00 Zolpidem Tartrate (Ambien) 5 mg HS PRN PO INSOMNIA; Start 06/16/18 at 00:30 Diphenhydramine HCl (Benadryl) 25 mg Q6H PRN IV FOR ITCHINESS; Start 06/16/18 at 06:30 Furosemide (Lasix) 40 mg BID DIURETICS PO ; Start 06/16/18 at 18:00 Norepinephrine 250 ml @ 1.875 mls/ hr TITRATE IV ; Start 06/16/18 at 09:30 SALVADOR BERGMAN Jun 16, 2018 14:47
--- NOTE | 2018-06-16 16:33 | CONS ---
DATE OF ADMISSION: 06/12/2018 DATE OF CONSULTATION: 06/16/2018 TYPE OF CONSULTATION: Nephrology. REASON FOR CONSULTATION: Acute kidney injury. PHYSICIAN REQUESTING CONSULT: Winston Wilder MD HISTORY OF PRESENT ILLNESS: This is a 63-year-old male with past medical history of coronary artery disease, history of scabies, history of peptic ulcer disease initially presented to an outside hospit al with worsening shortness of breath. The patient at the outside facility was subsequently transfer red to [facility] to undergo cardiac catheterization. The patient was found to hav e a non-STEMI. The patient's cardiac catheterization did show multiple vessel disease. The patient was evaluated for a CT surgery but was not deemed a candidate. The patient then underwent repeat car diac catheterization and had PCI to LAD and obtuse marginal vessel. Following the procedure, the pat ient was placed on a balloon pump and was in the intensive care unit. The patient's ejection fractio n was also noted to be about 25%. In terms of patient's renal history, the patient's baseline kidney functions are unknown. Upon admis fiona, the patient was noted to have a creatinine of 1.38 mg/dL. This has been fluctuating between 1. 3 to 1.6 mg/dL. The patient denies any hemoptysis, hematemesis or hematochezia. The patient denies any prior history of acute kidney injury or CKD. PAST MEDICAL HISTORY: As stated above, history of coronary artery disease, history of peptic ulcer d isease. PAST SURGICAL HISTORY: Unknown. FAMILY HISTORY: No family history of kidney disease. SOCIAL HISTORY: Positive tobacco use. ALLERGIES: PLEASE SEE LIST. MEDICATIONS: Have been reviewed. REVIEW OF SYSTEMS: A 14-point review of systems conducted. Pertinent positives stated in HPI, other aragon negative. PHYSICAL EXAMINATION: VITAL SIGNS: Blood pressure is 117/86, respiration 19, pulse 88, temperature 98.6. HEENT: Head is normocephalic. NECK: Supple. HEART: Regular rate. LUNGS: Show diminished breath sounds at the base. ABDOMEN: Soft, nontender to palpation without rebound or guarding. EXTREMITIES: Negative for clubbing, cyanosis. No edema. DERMATOLOGIC: The patient has noted excoriations on the hands and feet. NEUROLOGIC: No focal deficits. LABORATORY DATA: Show sodium 137, potassium 3.7, BUN 24, creatinine 1.47. White count 8.3, hemoglob in 12.9, platelet count is 280. DIAGNOSTIC DATA: The patient's chest x-ray from 06/14/2018 was reviewed, which shows evidence of CHF and interstitial edema. ASSESSMENT AND PLAN: This is a 63-year-old male who presents with: 1. Nonoliguric acute kidney injury with previous baseline creatinine of 0.9 mg/dL. Etiology of acut e kidney injury is possibly multifactorial secondary to hemodynamics, cardiorenal syndrome. Possibil ity of contrast-associated nephropathy is a consideration. The patient had recent cardiac catheteriz ation with over 300 mL of iodinated contrast exposure. Plan at this point is to do a full evaluation . Plan is to check UA with microanalysis. We will check urine electrolytes. We will quantify any p roteinuria, calculate a fractional excretion of urea. We will check a renal ultrasound to evaluate r enal parenchyma. We would otherwise continue current treatment plan, supportive care, renally dose a ll meds, monitor renal function closely on diuretic therapy. 2. Acute heart failure, ischemic cardiomyopathy. The patient has ejection fraction of 35%, status p ost PCI with drug-eluting stent placed in LAD. We will continue current medical management. Follow up with cardiology recommendations. 3. Anemia. Monitor hemoglobin and hematocrit levels. 4. Mineral bone disorder. Monitor calcium and phosphorus levels. 5. Cardiogenic shock. The patient is status post balloon pump. The patient has been weaned off pre ssor support. We will continue to monitor. 6. Hypertension. Continue current blood pressure regimen. 7. Scabies. The patient has been treated. Continue to monitor. 8. History of peptic ulcer disease. Continue PPI. 9. Non-ST elevation myocardial infarction. The patient is status post PCI. Continue medical manage ment. Thank you, Dr. Wilder, for this interesting consult. It will be a pleasure to follow the patient wi th you throughout the hospital course. Dictated By: SMITH BECKWITH DO NR/NTS Conf#: [id number] DID#: [id number] CC: YUSRA AYALA MD; WINSTON WILDER MD; VASU LAW MD;*EndCC*
[2018-06-16] MEDS: FUROSEMIDE 40 MG TAB PO SCH (18:08)
[2018-06-16] MEDS: ATORVASTATIN 80 MG TAB PO SCH (20:40)
[2018-06-17] VITALS (12 sets, daily range): BP systolic 98–108; BP diastolic 53–69; PULSE 72–110; RESP 18–20
[2018-06-17] MEDS: PANTOPRAZOLE (EC) 40 MG TAB PO SCH (05:26)
[2018-06-17] MEDS: FUROSEMIDE 40 MG TAB PO SCH ×2 (05:26→18:19)
[2018-06-17] MEDS: LISINOPRIL 5 MG TAB PO SCH (08:46)
[2018-06-17] MEDS: CLOPIDOGREL 75 MG TAB PO SCH (08:46)
[2018-06-17] MEDS: ASPIRIN 81 MG TAB PO SCH (08:46)
--- NOTE | 2018-06-17 09:17 | CONS ---
Assessment/Plan Cardiology NYHA: IV Heart Failure Type: Acute on Chronic Heart Failure Type: Systolic Assessment/Plan Hospital Course (Demo Recall) NSTEMI: Trop 15. Cath 06/13/18 with 3 vessel disease. Seen by Dr. Aguilar and decided to be high risk for CABG. Pt agreed to PCI.S/p cath 06/15 with successful PCI of LAD. Spontaneous occlusion of OM during case. Unable to revascularize due to vessel anatomy and tortuosity. Doing well. Cardiogenic shock: IABP placed in cardiac cath rn and removed 06/16. Off levophed and back on cardiac meds Acute on chronic systolic heart failure: EF 25-30%. LVEDP 35 on original cath, then 30mmHg 06/15. Euvolemic after diuresis Ischemic cardiomoyopathy CAD s/p NM/PCI 2007 HTN CKD: Cr 1.4. Slightly worse at 1.6 Rash: rosalino treated for scabies and also lice -doubt contrast nephropathy as only mild increase now 48 hrs post cath. Would watch one more day and if stable, can be discharged from cardiac perspective -ASA 81mg -plavix 75mg (please discharge with at least 3 months as unclear if he will have good follow up) -lipitor 80mg -coreg 6.25mg BID -lisinopril 5mg -lasix 40mg PO BID Consultation Date/Type/Reason Admit Date/Time Jun 12, 2018 at 19:40 Initial Consult Date 06/13/18 Type of Consult Cardiology Requesting Provider: YUSRA AYALA MD Date/Time of Note DATE: 06/17/18 TIME: 09:14 24 HR Interval Summary Free Text/Dictation Transferred to tele. No complaints. Slightly sore at groin site. Cr 1.6 Exam/Review of Systems Vital Signs Vitals Vital Signs Date Temp Pulse Resp B/P (MAP) Pulse Ox O2 O2 Flow FiO2 Time Delivery Rate 06/17/18 98.0 81 20 103/65 91 08:32 (78) 06/16/18 Room Air 19:45 06/16/18 2.0 18:44 06/16/18 27 03:47 Intake and Output 06/16/18 06/16/18 06/17/18 1515:00 23:00 07:00 IntakeIntake Total 547.5 ml 240 ml 550 ml OutputOutput Total 750 ml 220 ml 600 ml BalanceBalance -202.5 ml 20 ml -50 ml Exam Constitutional: alert, oriented Psych: no complaints, nl mood/affect Head: normocephalic, atraumatic Neck: supple; No jvd Respiratory: clear to auscultation, diminished breath sounds; No crackles/rales Cardiovascular: regular rate and rhythm; No edema, No systolic murmur Gastrointestinal: soft, non-tender; No distended Neurological: nl mental status, nl speech Labs Result Diagram: 06/16/18 0434 06/17/18 0613 Results 24hrs Laboratory Tests Test 06/17/18 06:13 Sodium Level 138 Potassium Level 4.2 Chloride Level 99 Carbon Dioxide Level 26 Anion Gap 13 Blood Urea Nitrogen 30 H Creatinine 1.66 H Est Glomerular Filtrat Rate mL/min 42 L Glucose Level 119 # Calcium Level 9.5 Medications Medications Current Medications Aspirin (Aspirin) 81 mg DAILY PO Last administered on 06/17/18at 08:46; Admin Dose 81 MG; Start 06/13/18 at 09:00 IV Flush (NS 3 ml) 3 ml PER PROTOCOL IV ; Start 06/12/18 at 19:30 Hydromorphone HCl (Dilaudid) 0.5 mg Q4H PRN IV .SEVERE PAIN 7-10; Start 06/12/18 at 19:30 Pantoprazole (Protonix Tab) 40 mg DAILY@06 PO Last administered on 06/17/18at 05:26; Admin Dose 40 MG; Start 06/13/18 at 06:00 Lisinopril (Zestril) 5 mg DAILY PO Last administered on 06/17/18at 08:46; Admin Dose 5 MG; Start 06/13/18 at 09:00 Atorvastatin Calcium (Lipitor) 80 mg HS PO Last administered on 06/16/18at 20:40; Admin Dose 80 MG; Start 06/12/18 at 21:00 Miscellaneous Information Patients own medicat... BID@10,16 XX ; Start 06/13/18 at 10:00 Carvedilol (Coreg) 6.25 mg BID PO Last administered on 06/17/18at 08:46; Admin Dose 6.25 MG; Start 06/13/18 at 09:00 Morphine Sulfate (morphine) 2 mg Q2H PRN IV FOR NON CARDIAC PAIN (4-10) Last administered on 06/15/18at 21:20; Admin Dose 2 MG; Start 06/15/18 at 11:00 Clopidogrel Bisulfate (plaVIX) 75 mg DAILY PO Last administered on 06/17/18at 08:46; Admin Dose 75 MG; Start 06/16/18 at 09:00 Zolpidem Tartrate (Ambien) 5 mg HS PRN PO INSOMNIA; Start 06/16/18 at 00:30 Diphenhydramine HCl (Benadryl) 25 mg Q6H PRN IV FOR ITCHINESS; Start 06/16/18 at 06:30 Furosemide (Lasix) 40 mg BID DIURETICS PO Last administered on 06/17/18at 05:26; Admin Dose 40 MG; Start 06/16/18 at 18:00 JOJO NUNEZ Jun 17, 2018 09:17
--- NOTE | 2018-06-17 09:55 | PN ---
DATE: 06/17/2018 SUBJECTIVE: The patient is stable, no events overnight. No fevers, chills, nausea, vomiting. OBJECTIVE: VITAL SIGNS: Blood pressure is 103/65, pulse 81, respirations 20, temperature 98.0. HEENT: Head is normocephalic. NECK: Supple. HEART: Regular rate. LUNGS: Show diminished breath sounds at the base. ABDOMEN: Soft, nontender to palpation without rebound or guarding. EXTREMITIES: Negative for clubbing, cyanosis, no edema. DERMATOLOGIC: No rashes. MUSCULOSKELETAL: No joint effusion. NEUROLOGIC: No change in exam. MEDICATIONS: Reviewed. LABORATORY DATA: Has been reviewed. ASSESSMENT AND PLAN: 1. Nonoliguric acute kidney injury with previous baseline creatinine of 0.6 mg/dL. Etiology of acut e kidney injury is likely multifactorial secondary to hemodynamics, cardiorenal syndrome, questionabl e contrast-associated nephropathy. The patient's renal function has declined in the last 24 hours. Etiology may be due to recent contrast exposure versus diuretics, ADA inhibitor effect. Recommendati on at this point would be to continue current medical management. Consider deescalating diuretic the rapy, monitor renal function closely on ADA inhibitor. Will continue supportive care, renally dose m eds, avoid nephrotoxins. 2. Acute heart failure. The patient is status post PCI with a drug-eluting stent to LAD. Continue medical management. 3. Anemia. Monitor hemoglobin and hematocrit levels. 4. Mineral bone disorder, monitor calcium and phosphorus levels. 5. Status post cardiogenic shock. 6. Hypertension. Continue to monitor. 7. Scabies status-post treatment. 8. History of peptic ulcer disease. Continue proton pump inhibitor. 9. Non-ST elevation myocardial infarction, status post percutaneous coronary intervention. Continue medical management. Dictated By: SMITH BECKWITH DO NR/NTS Conf#: [id number] DID#: [id number] CC: YUSRA AYALA MD;*EndCC*
--- NOTE | 2018-06-17 10:01 | CONS ---
Assessment/Plan Assessment/Plan Assessment/Plan (Daily) Chest x-ray from today is essentially clear. Assessment and recommendations; 1 patient admitted with acute NC status post 2 angiograph he is status post stenting of LAD with unsuccessful attempt at obtaining obtuse marginal branch. Patient was turned down for CABG by cardiothoracic surgeon. 2. Chronic renal insufficiency, there is slight increase in serum creatinine likely contrast induced. 3. History of hypertension. 4. Scabies and lice infestation. Continue current supportive care. Monitor renal function. Currently there is no acute pulmonary pathology. Patient initially exhibited mild CHF pattern on chest x-ray with significant radiological improvement now. Consultation Date/Type/Reason Admit Date/Time Jun 12, 2018 at 19:40 Initial Consult Date 06/13/18 Type of Consult Pulmonary/critical care Patient is a 63-year-old male who was transferred from [facility] where he presented with shortness of breath, patient was diagnosed with acute NC and then subsequently transferred over here where he underwent coronary angiography which revealed multivessel disease. Patient is scheduled for CABG surgery. By the time I saw him, patient is awake and alert denies any chest pain, shortness of breath, coughing, wheezing. Past medical history; 1. Patient has a history of hypertension Medications; reviewed. Allergies; penicillin. Social history; remote history of smoking. Family history; noncontributory. Occupational history; patient is homeless. Unemployed. Review of systems; denies any headache, seizures, sinus symptoms, dysphagia, chest pain, angina, wheezing, shortness of breath. Any coughing. Any abdominal pain, nausea vomiting. Any bleeding tendencies. Any edema. Orthopnea. Any GI or urinary symptoms. Complains of itching. General exam; elderly male, awake alert, currently no distress. Requesting Provider: YUSRA AYALA MD Date/Time of Note DATE: 06/17/18 TIME: 09:58 24 HR Interval Summary Free Text/Dictation Patient's condition is stable. Has improved hemodynamically. Patient off intra-aortic balloon pump since yesterday morning. Has been transferred to telemetry unit. Denies any shortness of breath, chest pain. General exam; elderly male, awake and alert. Currently in no distress. Exam/Review of Systems Exam Vitals Vital Signs Date Temp Pulse Resp B/P (MAP) Pulse Ox O2 O2 Flow FiO2 Time Delivery Rate 06/17/18 98.0 81 20 103/65 91 08:32 (78) 06/16/18 Room Air 19:45 06/16/18 2.0 18:44 06/16/18 27 03:47 Intake and Output 06/16/18 06/16/18 06/17/18 1515:00 23:00 07:00 IntakeIntake Total 547.5 ml 240 ml 550 ml OutputOutput Total 750 ml 220 ml 600 ml BalanceBalance -202.5 ml 20 ml -50 ml Exam H EENT exam; supple neck, no JVD. No lymphadenopathy. Midline trachea. No thyromegaly. Patient has carious teeth. Chest exam; clear to auscultation. S1-S2 audible, no murmurs. Regular rhythm. Abdomen exam; soft, protuberant. No organomegaly. Bowel sounds audible. Extremity exam; no peripheral edema. Patient does have multiple excoriation acosta all over. SPORTS THERAPIST exam; no focal deficit. Results Result Diagram: 06/16/18 0434 06/17/18 0613 Results 24hrs Laboratory Tests Test 06/17/18 06:13 Sodium Level 138 Potassium Level 4.2 Chloride Level 99 Carbon Dioxide Level 26 Anion Gap 13 Blood Urea Nitrogen 30 H Creatinine 1.66 H Est Glomerular Filtrat Rate mL/min 42 L Glucose Level 119 # Calcium Level 9.5 Medications Medication Current Medications Aspirin (Aspirin) 81 mg DAILY PO Last administered on 06/17/18at 08:46; Admin Dose 81 MG; Start 06/13/18 at 09:00 IV Flush (NS 3 ml) 3 ml PER PROTOCOL IV ; Start 06/12/18 at 19:30 Hydromorphone HCl (Dilaudid) 0.5 mg Q4H PRN IV .SEVERE PAIN 7-10; Start 06/12/18 at 19:30 Pantoprazole (Protonix Tab) 40 mg DAILY@06 PO Last administered on 06/17/18at 05:26; Admin Dose 40 MG; Start 06/13/18 at 06:00 Lisinopril (Zestril) 5 mg DAILY PO Last administered on 06/17/18at 08:46; Admin Dose 5 MG; Start 06/13/18 at 09:00 Atorvastatin Calcium (Lipitor) 80 mg HS PO Last administered on 06/16/18at 20:40; Admin Dose 80 MG; Start 06/12/18 at 21:00 Miscellaneous Information Patients own medicat... BID@10,16 XX ; Start 06/13/18 at 10:00 Carvedilol (Coreg) 6.25 mg BID PO Last administered on 06/17/18at 08:46; Admin Dose 6.25 MG; Start 06/13/18 at 09:00 Morphine Sulfate (morphine) 2 mg Q2H PRN IV FOR NON CARDIAC PAIN (4-10) Last administered on 06/15/18at 21:20; Admin Dose 2 MG; Start 06/15/18 at 11:00 Clopidogrel Bisulfate (plaVIX) 75 mg DAILY PO Last administered on 06/17/18at 08:46; Admin Dose 75 MG; Start 06/16/18 at 09:00 Zolpidem Tartrate (Ambien) 5 mg HS PRN PO INSOMNIA; Start 06/16/18 at 00:30 Diphenhydramine HCl (Benadryl) 25 mg Q6H PRN IV FOR ITCHINESS; Start 06/16/18 at 06:30 Furosemide (Lasix) 40 mg BID DIURETICS PO Last administered on 06/17/18at 05:26; Admin Dose 40 MG; Start 06/16/18 at 18:00 YESSY THORNTON Jun 17, 2018 10:01
--- NOTE | 2018-06-17 12:07 | PN ---
Date/Time of Note Date/Time of Note DATE: 06/17/18 TIME: 12:04 Assessment/Plan VTE Prophylaxis Risk score (from Ns)>0 risk: 13 SCD applied (from Nsg): Yes Pharmacological prophylaxis: heparin Lines/Catheters IV Catheter Type (from Nrsg): Saline Lock Urinary Cath still in place: No Assessment/Plan Hospital Course 63 yo male with h/o CAD presents with NSTEMI and acute CHF NSTEMI: -Patient did have a prior heart cath with multivessel disease but is not a candidate for CABG -Status post PCI with stent placement in the LAD, status post balloon pump and pressors for cardiogenic shock -Continue cardiac meds Cardiogenic shock after heart cath-resolved -Status post balloon pump and pressors Acute CHF: -Continue Lasix Scabies: Resolved -Status post permethrin cream and ivermectin -ID consultation appreciated TERRENCE -Nephrology consultation appreciated -Renal function has worsened in the past 24 hours, etiology is multifactorial secondary to hemodynamics and possible contrast-induced nephropathy -Continue to monitor PUD: - Continue PPI Prophylaxis: Heparin DC planning: Monitor renal function, patient clear for DC tomorrow per cardiology Result Diagram: 06/16/18 0434 06/17/18 0613 Results 24hrs Laboratory Tests Test 06/17/18 06:13 Sodium Level 138 Potassium Level 4.2 Chloride Level 99 Carbon Dioxide Level 26 Anion Gap 13 Blood Urea Nitrogen 30 H Creatinine 1.66 H Est Glomerular Filtrat Rate mL/min 42 L Glucose Level 119 # Calcium Level 9.5 Subjective 24 Hr Interval Summary Constitutional: no complaints Exam/Review of Systems Exam Vitals Vital Signs Date Temp Pulse Resp B/P (MAP) Pulse Ox O2 O2 Flow FiO2 Time Delivery Rate 06/17/18 98.0 81 20 103/65 91 08:32 (78) 06/16/18 Room Air 19:45 06/16/18 2.0 18:44 06/16/18 27 03:47 Intake and Output 06/16/18 06/16/18 06/17/18 1515:00 23:00 07:00 IntakeIntake Total 547.5 ml 240 ml 550 ml OutputOutput Total 750 ml 220 ml 600 ml BalanceBalance -202.5 ml 20 ml -50 ml Constitutional: alert, oriented Respiratory: clear to auscultation Cardiovascular: regular rate and rhythm Gastrointestinal: soft; No distended Musculoskeletal: nl extremities to inspection Results Results 24hrs Laboratory Tests Test 06/17/18 06:13 Sodium Level 138 Potassium Level 4.2 Chloride Level 99 Carbon Dioxide Level 26 Anion Gap 13 Blood Urea Nitrogen 30 H Creatinine 1.66 H Est Glomerular Filtrat Rate mL/min 42 L Glucose Level 119 # Calcium Level 9.5 Medications Medication Current Medications Aspirin (Aspirin) 81 mg DAILY PO Last administered on 06/17/18 08:46; Admin Dose 81 MG; Start 06/13/18 at 09:00 IV Flush (NS 3 ml) 3 ml PER PROTOCOL IV ; Start 06/12/18 at 19:30 Hydromorphone HCl (Dilaudid) 0.5 mg Q4H PRN IV .SEVERE PAIN 7-10; Start 06/12/18 at 19:30 Pantoprazole (Protonix Tab) 40 mg DAILY@06 PO Last administered on 06/17/18 05:26; Admin Dose 40 MG; Start 06/13/18 at 06:00 Lisinopril (Zestril) 5 mg DAILY PO Last administered on 06/17/18 08:46; Admin Dose 5 MG; Start 06/13/18 at 09:00 Atorvastatin Calcium (Lipitor) 80 mg HS PO Last administered on 06/16/18at 20:40; Admin Dose 80 MG; Start 06/12/18 at 21:00 Miscellaneous Information Patients own medicat... BID@10,16 XX ; Start 06/13/18 at 10:00 Carvedilol (Coreg) 6.25 mg BID PO Last administered on 06/17/18 08:46; Admin Dose 6.25 MG; Start 06/13/18 at 09:00 Morphine Sulfate (morphine) 2 mg Q2H PRN IV FOR NON CARDIAC PAIN (4-10) Last administered on 06/15/18 21:20; Admin Dose 2 MG; Start 06/15/18 at 11:00 Clopidogrel Bisulfate (plaVIX) 75 mg DAILY PO Last administered on 06/17/18 08:46; Admin Dose 75 MG; Start 06/16/18 at 09:00 Zolpidem Tartrate (Ambien) 5 mg HS PRN PO INSOMNIA; Start 06/16/18 at 00:30 Diphenhydramine HCl (Benadryl) 25 mg Q6H PRN IV FOR ITCHINESS; Start 06/16/18 at 06:30 Furosemide (Lasix) 40 mg BID DIURETICS PO Last administered on 06/17/18at 05:26; Admin Dose 40 MG; Start 06/16/18 at 18:00 SALVADOR BERGMAN Jun 17, 2018 12:07
--- NOTE | 2018-06-17 13:10 | CONS ---
Assessment/Plan Assessment/Plan Hospital Course (Demo Recall) Alert feels good Allergy: Penicillin Physical examination: Well-developed well-nourished elderly man who is in no distress head atraumatic normocephalic neck is supple chest rise symmetrical b reath sounds diminished bases heart S1-S2 abdomen soft bowel sounds present extremities without cyanosis skin patient has multiple scratching acosta mostly on lower extremities Assessment: 1. Head lice and scabies, status post Elimite treatment 2. 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 CHF 4. Homelessness Plan: Stable, repeat Elimite on 06/19, cardiology rec-s Consultation Date/Type/Reason Admit Date/Time Jun 12, 2018 at 19:40 Initial Consult Date 06/13/18 Type of Consult id Requesting Provider: YUSRA AYALA MD Date/Time of Note DATE: 06/17/18 TIME: 13:09 Exam/Review of Systems Exam Vitals Vital Signs Date Temp Pulse Resp B/P (MAP) Pulse Ox O2 O2 Flow FiO2 Time Delivery Rate 06/17/18 78 12:53 06/17/18 98.3 20 108/69 93 12:22 (82) 06/16/18 Room Air 19:45 06/16/18 2.0 18:44 06/16/18 27 03:47 Intake and Output 06/16/18 06/16/18 06/17/18 1515:00 23:00 07:00 IntakeIntake Total 547.5 ml 240 ml 550 ml OutputOutput Total 750 ml 220 ml 600 ml BalanceBalance -202.5 ml 20 ml -50 ml Results Result Diagram: 06/16/18 0434 06/17/18 0613 Results 24hrs Laboratory Tests Test 06/17/18 06:13 Sodium Level 138 Potassium Level 4.2 Chloride Level 99 Carbon Dioxide Level 26 Anion Gap 13 Blood Urea Nitrogen 30 H Creatinine 1.66 H Est Glomerular Filtrat Rate mL/min 42 L Glucose Level 119 # Calcium Level 9.5 Medications Medication Current Medications Aspirin (Aspirin) 81 mg DAILY PO Last administered on 06/17/18at 08:46; Admin Dose 81 MG; Start 06/13/18 at 09:00 IV Flush (NS 3 ml) 3 ml PER PROTOCOL IV ; Start 06/12/18 at 19:30 Hydromorphone HCl (Dilaudid) 0.5 mg Q4H PRN IV .SEVERE PAIN 7-10; Start 06/12/18 at 19:30 Pantoprazole (Protonix Tab) 40 mg DAILY@06 PO Last administered on 06/17/18 05:26; Admin Dose 40 MG; Start 06/13/18 at 06:00 Lisinopril (Zestril) 5 mg DAILY PO Last administered on 06/17/18 08:46; Admin Dose 5 MG; Start 06/13/18 at 09:00 Atorvastatin Calcium (Lipitor) 80 mg HS PO Last administered on 06/16/18 20:40; Admin Dose 80 MG; Start 06/12/18 at 21:00 Miscellaneous Information Patients own medicat... BID@10,16 XX ; Start 06/13/18 at 10:00 Carvedilol (Coreg) 6.25 mg BID PO Last administered on 06/17/18 08:46; Admin Dose 6.25 MG; Start 06/13/18 at 09:00 Morphine Sulfate (morphine) 2 mg Q2H PRN IV FOR NON CARDIAC PAIN (4-10) Last administered on 06/15/18 21:20; Admin Dose 2 MG; Start 06/15/18 at 11:00 Clopidogrel Bisulfate (plaVIX) 75 mg DAILY PO Last administered on 06/17/18 08:46; Admin Dose 75 MG; Start 06/16/18 at 09:00 Zolpidem Tartrate (Ambien) 5 mg HS PRN PO INSOMNIA; Start 06/16/18 at 00:30 Diphenhydramine HCl (Benadryl) 25 mg Q6H PRN IV FOR ITCHINESS; Start 06/16/18 at 06:30 Furosemide (Lasix) 40 mg BID DIURETICS PO Last administered on 06/17/18 05:26; Admin Dose 40 MG; Start 06/16/18 at 18:00 KIKO NAYAK NP Jun 17, 2018 13:10
[2018-06-17] MEDS: ATORVASTATIN 80 MG TAB PO SCH (20:51)
[2018-06-18] VITALS (9 sets, daily range): BP systolic 94–103; BP diastolic 54–68; PULSE 53–80; RESP 18–20
[2018-06-18] MEDS: PANTOPRAZOLE (EC) 40 MG TAB PO SCH (06:19)
[2018-06-18] MEDS: FUROSEMIDE 40 MG TAB PO SCH ×2 (06:20→17:19)
[2018-06-18] MEDS: ASPIRIN 81 MG TAB PO SCH (08:21)
[2018-06-18] MEDS: LISINOPRIL 5 MG TAB PO SCH (08:21)
[2018-06-18] MEDS: CLOPIDOGREL 75 MG TAB PO SCH (08:21)
[2018-06-18] MEDS ORDERED: ASPI-831 PO (09:02)
[2018-06-18] MEDS ORDERED: CLOP75TA28 PO (09:02)
[2018-06-18] MEDS ORDERED: ATOR-2 PO (09:02)
[2018-06-18] MEDS ORDERED: FURO40TA4 PO (09:02)
[2018-06-18] MEDS ORDERED: CARV6.2579 PO (09:02)
--- NOTE | 2018-06-18 09:03 | PDOCDIS ---
Discharge Instructions CONDITION [id number] Patient Condition: [id number] Good HOME CARE INSTRUCTIONS: [id number] Diet Instructions: [id number] Modified Fat ACTIVITY: [id number] Activity Restrictions: [id number] No Restrictions FOLLOW UP/APPOINTMENTS Follow-up Plan FOLLOW UP WITH YOUR PCP AND DR JOJO NUNEZ IN 1-2 WEEKS, SALVADOR BERGMAN Jun 18, 2018 09:03
--- NOTE | 2018-06-18 09:12 | PN ---
DATE: 06/18/2018 SUBJECTIVE: The patient is stable, no events overnight. No fevers, chills, nausea, vomiting. OBJECTIVE: VITAL SIGNS: Blood pressure is 103/68, pulse 72, respirations 20, temperature 98.1. HEENT: Head is normocephalic. NECK: Supple. HEART: Regular rate. LUNGS: Show diminished breath sounds at the base. ABDOMEN: Soft, nontender to palpation without rebound or guarding. EXTREMITIES: Negative for clubbing, cyanosis, no edema. DERMATOLOGIC: No rashes. MUSCULOSKELETAL: No joint effusion. NEUROLOGIC: No change in exam. MEDICATIONS: The patient's medications have been reviewed. LABORATORY DATA: Has been reviewed. ASSESSMENT AND PLAN: 1. Nonoliguric acute kidney injury with previous baseline creatinine 0.6 mg/dL. Etiology of TERRENCE is secondary to hemodynamics, cardiorenal syndrome, questionable contrast-associated nephropathy. The p atient's renal function has stabilized in the last 24 hours. Continue current treatment plan, suppor tive care, renally dose all meds. 2. Acute heart failure. Patient is clinically improving. Continue medical management. 3. Non-STEMI. Patient is status post percutaneous coronary intervention to left anterior descending . Continue medical management. 4. Anemia. Monitor hemoglobin and hematocrit levels. 5. Mineral bone disorder. Continue to monitor calcium and phosphorus levels. 6. Status post cardiogenic shock. 7. Hypertension. Continue to monitor. 8. Status post scabies. 9. Peptic ulcer disease. Dictated By: SMITH BECKWITH DO NR/NTS Conf#: [id number] DID#: [id number] CC: YUSRA AYALA MD; VASU LAW MD; SALVADOR BERGMAN MD;*End*
--- NOTE | 2018-06-18 11:36 | DS ---
Date/Time of Note Date/Time of Note DATE: 06/18/18 TIME: 11:33 Discharge Summary Admission/Discharge Info Admit Date/Time Jun 12, 2018 at 19:40 Discharge Date/Time June 18, 2018 Discharge Diagnosis 63 yo male with h/o CAD presents with NSTEMI and acute CHF NSTEMI: -Patient did have a prior heart cath with multivessel disease but is not a candidate for CABG -Status post PCI with stent placement in the LAD, status post balloon pump and pressors for cardiogenic shock -DC with cardiac meds Cardiogenic shock after heart cath-resolved -Status post balloon pump and pressors Acute CHF: -Continue Lasix upon DC Scabies: Resolved -Status post permethrin cream and ivermectin -ID consultation appreciated TERRENCE -Nephrology consultation appreciated -Renal function has stabilized PUD: - Continue PPI Homelessness -pipe 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 Patient had a heart catheter showed multivessel disease and CT surgery was consulted but patient was not a candidate for CABG. Patient was taken for PCI and stent was placed in the LAD. Patient did have cardiogenic shock and required pressors as well as balloon pump. Patient did stabilize and was transferred to the ICU, creatinine did increase somewhat possibly secondary to hemodynamics and contrast-induced nephropathy but renal function did stabilize, patient was seen by nephrology. Patient was clear for DC per cardiology, the day of discharge patient's vitals, labs and physical exam are stable. Patient was discharged with cardiac medications, patient is homeless and was seen by psychosocial rehabilitation counselor, patient resides in a detention. Home Meds Active Scripts Furosemide* (Furosemide*) 40 Mg Tablet, 40 MG PO DAILY, #60 TAB Prov:MADALYNSALVADOR SOLORZANO 06/18/18 Aspirin (Aspirin) 81 Mg Chew, 81 MG PO DAILY, #90 TAB Prov:SALVADOR BERGMAN 06/18/18 Carvedilol* (Carvedilol*) 6.25 Mg Tablet, 6.25 MG PO BID, #60 TAB 1 Refill Prov:SALVADOR BERGMAN 06/18/18 Clopidogrel Bisulfate (Clopidogrel) 75 Mg Tablet, 75 MG PO DAILY, #60 TAB 1 Refill Prov:SALVADOR BERGMAN 06/18/18 Atorvastatin* (Atorvastatin*) 80 Mg Tablet, 80 MG PO QHS, #60 TAB Prov:SALVADOR BERGMAN 06/18/18 Reported Medications Benazepril Hcl* (Benazepril Hcl*) 5 Mg Tablet, 5 MG PO DAILY, #30 TAB 06/12/18 Omeprazole* (Omeprazole*) 20 Mg Capsule.dr, 20 MG PO DAILY, #30 CAP 06/12/18 Cholecalciferol* (Vitamin D3*) 1,000 Unit Tablet, 1000 UNIT PO DAILY, TAB 06/12/18 Aspirin* (Aspirin* EC) 81 Mg Tablet.dr, 81 MG PO DAILY, TAB 06/12/18 Nitroglycerin* (Nitroglycerin* SL) 0.4 Mg Tab.subl, 0.4 MG SL Q5MIN PRN for CHEST PAIN, BOTTLE 06/12/18 Discontinued Reported Medications Carvedilol* (Carvedilol*) 25 Mg Tablet, 25 MG PO BID, #60 TAB 06/12/18 Isosorbide Mononitrate* (Isosorbide Mononitrate*) 60 Mg Tab.er.24h, 60 MG PO DAILY, TAB 06/12/18 Discontinued Scripts Oxycodone HCl/Acetaminophen (Oxycodone-Acetaminophen 5-325) 1 Each Tablet, 1 TAB PO Q6H PRN for PAIN LEVEL 4-6, #10 TAB Prov:NINO MILLER NP 06/12/17 Metronidazole* (Flagyl*) 500 Mg Tablet, 500 MG PO Q8 for 10 Days, #30 TAB Prov:NINO MILLER NP 06/12/17 Ciprofloxacin Hcl* (Ciprofloxacin Hcl*) 500 Mg Tablet, 500 MG PO BID for 10 Days, #20 TAB Prov:NINO MILLER NP 06/12/17 Benazepril Hcl* (Benazepril Hcl*) 5 Mg Tablet, 5 MG PO DAILY, #30 TAB Prov:NINO MILLER NP 06/12/17 Carvedilol* (Carvedilol*) 3.125 Mg Tablet, 3.125 MG PO BID, #60 TAB Prov:NINO MILLER NP 06/12/17 Pantoprazole* (Protonix*) 40 Mg Tablet.dr, 40 MG PO BID, #60 TAB Prov:NINO MILLER NP 06/12/17 Isosorbide Mononitrate* (Isosorbide Mononitrate*) 30 Mg Tab.er.24h, 30 MG PO D AILY, #30 TAB Prov:NINO MILLER CANCELLATION CLERK 06/12/17 Follow-up Plan FOLLOW UP WITH YOUR PCP AND DR JOJO NUNEZ IN 1-2 WEEKS, Primary Care Provider Not On Staff Doctor Time spent on discharge: > 30 minutes SALVADOR BERGMAN Jun 18, 2018 11:36
== END 2018-06-18 18:40 | disposition home or self-care (01) | DRG 270 ==
LOC: E/R 17:55 → TEL 19:40 → ICU 06-13 08:58 → TEL 06-16 22:11
PROVIDERS: ADMIT Internal Medicine; ATTEND Internal Medicine
PROC: 4A023N7 Measurement of Cardiac Sampling and Pressure, Left Heart, Percutaneous Approach (ICD-10-PCS; 2018-06-13)
PROC: B211YZZ Fluoroscopy of Multiple Coronary Arteries using Other Contrast (ICD-10-PCS; 2018-06-13)
PROC: 02703ZZ Dilation of Coronary Artery, One Artery, Percutaneous Approach (ICD-10-PCS; 2018-06-15)
PROC: B211YZZ Fluoroscopy of Multiple Coronary Arteries using Other Contrast (ICD-10-PCS; 2018-06-15)
PROC: 5A02210 Assistance with Cardiac Output using Balloon Pump, Continuous (ICD-10-PCS; principal; 2018-06-15 07:30)
PROC: 027034Z Dilation of Coronary Artery, One Artery with Drug-eluting Intraluminal Device, Percutaneous Approach (ICD-10-PCS; 2018-06-15 07:30)
DX: I21.4 Non-ST elevation (NSTEMI) myocardial infarction (principal); I50.23 Acute on chronic systolic (congestive) heart failure; R57.0 Cardiogenic shock; N17.9 Acute kidney failure, unspecified; I13.0 Hypertensive heart and chronic kidney disease with heart failure and stage 1 through stage 4 chronic kidney disease, or unspecified chronic kidney disease; J45.909 Unspecified asthma, uncomplicated; I25.2 Old myocardial infarction; I25.10 Atherosclerotic heart disease of native coronary artery without angina pectoris; B86 Scabies; I25.5 Ischemic cardiomyopathy; I25.82 Chronic total occlusion of coronary artery; I24.0 Acute coronary thrombosis not resulting in myocardial infarction; B85.0 Pediculosis due to Pediculus humanus capitis; N14.1 Nephropathy induced by other drugs, medicaments and biological substances; T50.8X5A Adverse effect of diagnostic agents, initial encounter; N18.9 Chronic kidney disease, unspecified; F17.200 Nicotine dependence, unspecified, uncomplicated; Z95.5 Presence of coronary angioplasty implant and graft; K27.9 Peptic ulcer, site unspecified, unspecified as acute or chronic, without hemorrhage or perforation; Z59.0 Homelessness; Z98.61 Coronary angioplasty status
CPT/HCPCS: 36415; 71045; 76775; 80048; 80053; 81001; 81003; 82043; 83036; 83735; 83880; 84100; 84132; 84155; 84300; 84484; 85025; 85610; 85730; 87081; 92928; 92929; 93005; 93306; 93458; C1725; C1876; C1887; C1894; J0583; J1200; J1327; J1644; J1940; J2250; J2270; J3010; J7030; J7040; Q9967